=== PATIENT | female | born 1970 | race Caucasian/White ===

== ENCOUNTER 2018-03-17 06:50 | Emergency (ER) | payer BC ==
[2018-03-17] MEDS ORDERED: ASPIRIN 81 MG TABLET, CHEWABLE PO ONE (07:24)
[2018-03-17] MEDS ORDERED: MAG HYDROX/AL HYDROX/SIMETH SUSP 30 ML UDCUP PO ONE (07:25)
[2018-03-17] MEDS ORDERED: LIDOCAINE 2% VISCOUS SOLN 20 ML UDCUP PO ONE (07:25)
[2018-03-17 07:45] LABS: ABSOLUTE EOSINOPHILS # (AUTO) 0.2 10^3/uL (0.0-0.6); ABSOLUTE LYMPHOCYTES (AUTO) 2.8 10^3/uL (0.5-4.7); ABSOLUTE MONOCYTES (AUTO) 0.5 10^3/uL (0.1-1.4); ABSOLUTE NEUT (AUTO) 2.7 10^3/uL (1.7-8.2); BASOPHILS % (AUTO) 0.7 % (0-2); HEMATOCRIT 40.5 % (36.0-47.0); HEMOGLOBIN 13.7 g/dL (12.0-15.5); LYMPHOCYTES % (AUTO) 44.6 % (13-45); MEAN CORPUSCULAR HEMOGLOBIN 30.9 pg (27.0-33.4); MEAN CORPUSCULAR HGB CONC 33.9 g/dL (32.0-36.0); MEAN CORPUSCULAR VOLUME 91 fl (80-97); MONOCYTES % (AUTO) 7.3 % (3-13); PLATELET COUNT 201 10^3/uL (150-450); RED BLOOD COUNT 4.45 10^6/uL (3.72-5.28); RED CELL DISTRIBUTION WIDTH 14.7 % (11.5-14.0); SEGMENTED NEUTROPHILS % (AUTO) 43.4 % (42-78); TOTAL CELLS COUNTED % (AUTO) 100 %; WHITE BLOOD COUNT 6.2 10^3/uL (4.0-10.5)
--- NOTE | 2018-03-17 07:52 | RADIOLOGY REPORT (SQ) ---
EXAM DESCRIPTION: CHEST 2 VIEWS COMPLETED DATE/TIME: 03/17/2018 7:44 am REASON FOR STUDY: cp COMPARISON: Two-view chest 01/21/2016, 04/20/2009 EXAM PARAMETERS: NUMBER OF VIEWS: two views TECHNIQUE: Digital Frontal and Lateral radiographic views of the chest acquired. RADIATION DOSE: NA LIMITATIONS: none FINDINGS: LUNGS AND PLEURA: No opacities, masses or pneumothorax. No pleural effusion. MEDIASTINUM AND HILAR STRUCTURES: No masses or contour abnormalities. HEART AND VASCULAR STRUCTURES: Heart normal size. No evidence for failure. BONES: No acute findings. HARDWARE: Clips right upper quadrant post cholecystectomy OTHER: No other significant finding. IMPRESSION: NO ACUTE RADIOGRAPHIC FINDING IN THE CHEST. TECHNICAL DOCUMENTATION: JOB ID: [id number] [employer]- All Rights Reserved Reading location - IP/workstation name: [email or web address]
--- NOTE | 2018-03-17 07:55 | EKG REPORT ---
SEVERITY:- BORDERLINE ECG - SINUS RHYTHM BORDERLINE R WAVE PROGRESSION, ANTERIOR LEADS : Confirmed by: Eben Driscoll MD 17-Mar-2018 07:54:52
[2018-03-17 08:06] LABS: ALANINE AMINOTRANSFERASE 28 U/L (9-52); ALBUMIN 3.9 g/dL (3.5-5.0); ALKALINE PHOSPHATASE 89 U/L (38-126); ANION GAP 8 (5-19); ASPARTATE AMINO TRANSFERASE 25 U/L (14-36); BILIRUBIN,DIRECT 0.4 mg/dL (0.0-0.4); BILIRUBIN,TOTAL 0.6 mg/dL (0.2-1.3); BLOOD UREA NITROGEN 12 mg/dL (7-20); CALCIUM 9.4 mg/dL (8.4-10.2); CARBON DIOXIDE 27 mmol/L (22-30); CHLORIDE 109 mmol/L (98-107); CREATINE KINASE 69 U/L (30-135); GLUCOSE 89 mg/dL (75-110); LIPASE 152.9 U/L (23-300); POTASSIUM 4.1 mmol/L (3.6-5.0); SODIUM 144.4 mmol/L (137-145)
[2018-03-17 08:19] LABS: CREATINE KINASE MB 0.31 ng/mL (<4.55)
[2018-03-17 08:21] LABS: TROPONIN I < 0.012 ng/mL
[2018-03-17 08:24] LABS: APPEARANCE,URINE CLOUDY; BILIRUBIN,URINE NEGATIVE (NEGATIVE); GLUCOSE, URINE NEGATIVE (NEGATIVE); KETONES,URINE NEGATIVE (NEGATIVE); LEUKOCYTE ESTERASE,URINE SMALL (NEGATIVE); NITRITE,URINE NEGATIVE (NEGATIVE); PROTEIN,URINE NEGATIVE (NEGATIVE); URINE SPECIFIC GRAVITY 1.024; UROBILINOGEN,URINE NEGATIVE mg/dL (<2.0)
[2018-03-17 08:25] LABS: COLOR,URINE YELLOW
--- NOTE | 2018-03-17 08:55 | ER Document Report ---
ED General - General Chief Complaint: Chest Pain Stated Complaint: CHEST PAIN Time Seen by Provider: 03/17/18 07:09 Mode of Arrival: Ambulatory Information source: Patient Notes: Patient presents complaining of chest pain for the past 3 days. Patient states that pain goes through to her back. Patient points to the epigastric area as the location of her pain. Patient does report nausea. Patient denies any cough or cold symptoms. Patient denies any recent bed rest, travel or immobilization. Patient denies any history of DVT or PE in the past. TRAVEL OUTSIDE OF THE [place] IN LAST 30 DAYS: No - HPI Onset: Other Onset/Duration: Persistent Quality of pain: Other - Tightness Pain Level: 3 Associated symptoms: Chest pain, Nausea. 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 Family History: Reviewed & Not Pertinent - No history of DVT Patient has suicidal ideation: No Patient has homicidal ideation: No - Past Medical History Cardiac Medical History: Reports: Hx Hypertension - on meds Denies: Hx Coronary Artery Disease, Hx Heart Attack Pulmonary Medical History: Reports: Hx Asthma - inhalers Denies: Hx Bronchitis, Hx COPD, Hx Pneumonia Neurological Medical History: Denies: Hx Cerebrovascular Accident, Hx Seizures Renal/ Medical History: Denies: Hx Peritoneal Dialysis Musculoskeltal Medical History: Reports Hx Arthritis - rheumatoid Past Surgical History: Reports: Hx Section, Hx Cholecystectomy, Hx Tonsillectomy - Immunizations Hx Diphtheria, Pertussis, Tetanus Vaccination: No Review of Systems - Review of Systems Constitutional: No symptoms reported. denies: Fever, Recent illness EENT: No symptoms reported Cardiovascular: Chest pain Respiratory: No symptoms reported. denies: Cough, Short of breath Gastrointestinal: Abdominal pain, Nausea. denies: Diarrhea, Vomiting Genitourinary: No symptoms reported. denies: Dysuria, Flank pain Female Genitourinary: No symptoms reported Musculoskeletal: Back pain - Pain radiates from upper abdomen to her back Skin: No symptoms reported Hematologic/Lymphatic: No symptoms reported Neurological/Psychological: No symptoms reported Physical Exam - Vital signs Vitals: Temp 97.6 F 03/17/18 07:12 - General General appearance: Appears well, Alert In distress: None - HEENT Head: Normocephalic, Atraumatic Eyes: Normal Conjunctiva: Normal Nasal: Normal Mouth/Lips: Normal Mucous membranes: Normal Neck: Normal, Supple. No: Lymphadenopathy - Respiratory Respiratory status: No respiratory distress Chest status: Nontender Breath sounds: Normal Chest palpation: Normal - Cardiovascular Rhythm: Regular Heart sounds: S1 appreciated, S2 appreciated Murmur: No - Abdominal Inspection: Obese Distension: No distension Bowel sounds: Normal Tenderness: Tender - Epigastric tenderness Organomegaly: No organomegaly - Back Back: Normal, Nontender. No: CVA tenderness - Extremities General upper extremity: Normal inspection, Normal ROM General lower extremity: Normal inspection, Normal ROM. No: Edema - Neurological Neuro grossly intact: Yes Cognition: Normal Lexie Coma Scale Eye Opening: Spontaneous [place] Coma Scale Verbal: Oriented Lexie Coma Scale Motor: Obeys Commands [place] Coma Scale Total: 15 - Psychological Associated symptoms: Normal affect, Normal mood - Skin Skin Temperature: Warm Skin Moisture: Dry Skin Color: Normal Course - Re-evaluation Re-evalutation: 03/17/18 09:00 Patient reports that upper abdominal discomfort is now a 1/5 scale down from a 3 -1/2 after the GI cocktail. Vital signs stable. 03/17/18 10:02 Patient denies any chest pain or abdominal pain at this time. Vital signs continue stable. Consulted with Dr. Lim regarding patient presentation and diagnostic evaluation. Patient with a heart score of 2 for age and risk factor. Patient states that she has been having her pain symptoms for the past 3 days that have been constant. Patient reports chest pain although points to the epigastric area. Patient's symptoms are worrisome for gastritis given the location of her pain symptoms and improvement after use of GI cocktail. Patient will be encouraged to follow-up with a pbx operator on an outpatient basis for further workup. The patient has atypical chest pain as the patient's chest pain is not suggestive of pulmonary embolus, cardiac ischemia, aortic dissection, or other serious etiology. Given the extremely low risk of these diagnoses for the test in evaluation for these possibilities does not appear to be indicated at this time. Patient has been instructed to return if the symptoms worsen or change in any way. - Vital Signs Vital signs: Temp Pulse Resp BP Pulse Ox 98.3 F 14 138/90 H 99 03/17/18 10:13 03/17/18 10:00 03/17/18 10:00 03/17/18 10:00 - Laboratory Result Diagrams: 03/17/18 07:35 03/17/18 07:35 Laboratory results interpreted by me: 03/17/18 03/17/18 03/17/18 07:35 07:35 07:47 RDW 14.7 H Chloride 109 H Urine Blood MODERATE H Ur Leukocyte Esterase SMALL H 03/17/18 10:01 Labs- Entire Visit 03/17/18 03/17/18 03/17/18 07:35 07:35 07:35 WBC 6.2 RBC 4.45 Hgb 13.7 Hct 40.5 MCV 91 MCH 30.9 MCHC 33.9 RDW 14.7 H Plt Count 201 Seg Neutrophils % 43.4 Lymphocytes % 44.6 Monocytes % 7.3 Eosinophils % 4.0 Basophils % 0.7 Absolute Neutrophils 2.7 Absolute Lymphocytes 2.8 Absolute Monocytes 0.5 Absolute Eosinophils 0.2 Absolute Basophils 0.0 Sodium 144.4 Potassium 4.1 Chloride 109 H Carbon Dioxide 27 Anion Gap 8 BUN 12 Creatinine 0.94 Est GFR ( Amer) > 60 Est GFR (Non-Af Amer) > 60 Glucose 89 Calcium 9.4 Magnesium 2.0 Total Bilirubin 0.6 Direct Bilirubin 0.4 Neonat Total Bilirubin Not Reportable Neonat Direct Bilirubin Not Reportable Neonat Indirect Bili Not Reportable AST 25 ALT 28 Alkaline Phosphatase 89 Creatine Kinase 69 CK-MB (CK-2) 0.31 Troponin I < 0.012 Total Protein 7.0 Albumin 3.9 Lipase 152.9 Urine Color Urine Appearance Urine pH Ur Specific [place] Urine Protein Urine Glucose (UA) Urine Ketones Urine Blood Urine Nitrite Urine Bilirubin Urine Urobilinogen Ur Leukocyte Esterase Urine WBC (Auto) Urine RBC (Auto) U Hyaline Cast (Auto) Urine Bacteria (Auto) Squamous Epi Cells Auto Urine Mucus (Auto) Urine Ascorbic Acid Urine HCG, Qual 03/17/18 03/17/18 07:47 07:47 WBC RBC Hgb Hct MCV MCH MCHC RDW Plt Count Seg Neutrophils % Lymphocytes % Monocytes % Eosinophils % Basophils % Absolute Neutrophils Absolute Lymphocytes Absolute Monocytes Absolute Eosinophils Absolute Basophils Sodium Potassium Chloride Carbon Dioxide Anion Gap BUN Creatinine Est GFR ( Amer) Est GFR (Non-Af Amer) Glucose Calcium Magnesium Total Bilirubin Direct Bilirubin Neonat Total Bilirubin Neonat Direct Bilirubin Neonat Indirect Bili AST ALT Alkaline Phosphatase Creatine Kinase CK-MB (CK-2) Troponin I Total Protein Albumin Lipase Urine Color YELLOW Urine Appearance CLOUDY Urine pH 5.0 Ur Specific [place] 1.024 Urine Protein NEGATIVE Urine Glucose (UA) NEGATIVE Urine Ketones NEGATIVE Urine Blood MODERATE H Urine Nitrite NEGATIVE Urine Bilirubin NEGATIVE Urine Urobilinogen NEGATIVE Ur Leukocyte Esterase SMALL H Urine WBC (Auto) 19 Urine RBC (Auto) 5 U Hyaline Cast (Auto) 2 Urine Bacteria (Auto) 1+ Squamous Epi Cells Auto 27 Urine Mucus (Auto) MANY Urine Ascorbic Acid NEGATIVE Urine HCG, Qual NEGATIVE - Diagnostic Test Radiology reviewed: Image reviewed, Reports reviewed Discharge - Discharge Clinical Impression: Epigastric pain Chest pain Qualifiers: Chest pain type: unspecified Qualified Code(s): R07.9 - Chest pain, unspecified UTI (urinary tract infection) Qualifiers: Urinary tract infection type: site unspecified Hematuria presence: with hematuria Qualified Code(s): N39.0 - Urinary tract infection, site not specified Condition: Stable Disposition: HOME, SELF-CARE Instructions: Abdominal Pain ([facility]), Cephalexin ([facility]), Chest Pain of Unclear Cause ([facility]), Prilosec (Acid Pump Inhibitor) ([facility]), Urinary Tract Infection ([facility]) Additional Instructions: Return immediately for any new or worsening symptoms Followup with your primary care provider, call tomorrow to make a followup appointment Urine culture is pending, we will call if you need any different treatment. Follow-up with a pbx operator for further evaluation, call tomorrow for an appointment. Prescriptions: Cephalexin Monohydrate [Keflex 500 mg Capsule] 500 mg PO Q6H 5 Days capsule Omeprazole Magnesium [Prilosec Otc] 20 mg PO DAILY #15 tablet. Sucralfate [Carafate 1 gm Tablet] 1 gm PO ACHS #40 tablet Forms: Return to Work Referrals: BENY OSPINA MD [Primary Care Provider] - Follow up as needed SHY SANTANA MD [EMERITUS] - Follow up as needed ROB POWELL MD [ACTIVE STAFF] - Follow up as needed
[2018-03-17 10:09] VITALS: BP 138/90
== END 2018-03-17 10:13 | disposition home or self-care (01) ==
LOC: ER 06:50
DX: R07.89 Other chest pain (principal); N39.0 Urinary tract infection, site not specified; R31.9 Hematuria, unspecified; R10.13 Epigastric pain; R11.0 Nausea; I10 Essential (primary) hypertension; J45.909 Unspecified asthma, uncomplicated; Z90.49 Acquired absence of other specified parts of digestive tract; Z88.1 Allergy status to other antibiotic agents
CPT/HCPCS: 93005; 99285; 36415; 87086; 82553; 82550; 83690; 83735; 85025; 81025; 87088; 80053; 81001; 84484; 71046; 93010; J3490

== ENCOUNTER 2019-01-22 07:26 | Emergency (ER) | payer BC ==
--- NOTE | 2019-01-22 07:58 | RADIOLOGY REPORT (SQ) ---
EXAM DESCRIPTION: XR CHEST 2 VIEWS COMPLETED DATE/TME: 01/22/2019 00:00 CLINICAL HISTORY: 48 years, Female, Difficulty Breathing COMPARISON: 01/21/2016 NUMBER OF VIEWS: Two TECHNIQUE: Two views of the chest LIMITATIONS: None. FINDINGS: Lungs are clear. The heart is normal in size. There is no pneumothorax or pleural effusion. There is no acute fracture. IMPRESSION: No acute cardiopulmonary abnormality copyright 2010 [employer]- All Rights Reserved
[2019-01-22] MEDS ORDERED: IPRATROPIUM/ALBUTEROL 0.5-2.5 MG/3 ML AMPUL NEB ONE ×3 (08:17→13:20)
[2019-01-22] MEDS: ALBUTEROL SULFATE 0.083% NEB 2.5 MG/3 ML AMPUL NEB SCH ×2 (08:47→09:14)
[2019-01-22] MEDS ORDERED: PREDNISONE 20 MG TABLET PO ONE (09:13)
--- NOTE | 2019-01-22 09:16 | ER Document Report ---
ED Medical Screen (RME) - General Chief Complaint: Breathing Difficulty Stated Complaint: DIFFICULTY BREATHING Time Seen by Provider: 01/22/19 09:13 Primary Care Provider: HERNAN BURTON MD [Primary Care Provider] - Follow up as needed Mode of Arrival: Ambulatory Information source: Patient Notes: Patient presents complaining of asthma exacerbation. Patient states she has had nonproductive cough for about 2 weeks. Patient states that she went to an urgent care 10 days ago and was placed on steroids and Augmentin with an inhaler. Patient states that her symptoms have persisted and she feels as though they are worsening. Patient saw her primary doctor yesterday who just advised her to continue her asthma medications. Patient states today she feels like her symptoms are worse that she is having chest tightness with shortness of breath and wheezing. Patient denies any fever. Patient is still taking her antibiotics and is tapering her dose of steroids at this time, although has not had her dose of steroids today. I have greeted and performed a rapid initial assessment of this patient. A comprehensive ED assessment and evaluation of the patient, analysis of test results and completion of the medical decision making process will be conducted by additional ED providers. TRAVEL OUTSIDE OF THE [place] IN LAST 30 DAYS: No - Related Data Allergies/Adverse Reactions: erythromycin base [Erythromycin Base] Allergy (Severe, Verified 01/22/19 07:34) Chest pain Past Medical History - Social History Chew tobacco use (# tins/day): No Frequency of alcohol use: None Drug Abuse: None - Past Medical History Cardiac Medical History: Reports: Hx Hypertension - on meds Denies: Hx Coronary Artery Disease, Hx Heart Attack Pulmonary Medical History: Reports: Hx Asthma - inhalers Denies: Hx Bronchitis, Hx COPD, Hx Pneumonia Neurological Medical History: Denies: Hx Cerebrovascular Accident, Hx Seizures Renal/ Medical History: Denies: Hx Peritoneal Dialysis Musculoskeltal Medical History: Reports Hx Arthritis - rheumatoid Past Surgical History: Reports: Hx Section, Hx Cholecystectomy, Hx Tonsillectomy - Immunizations Hx Diphtheria, Pertussis, Tetanus Vaccination: No Physical Exam - Respiratory Respiratory status: No respiratory distress Breath sounds: Nonproductive cough, Wheezing Doctor's Discharge - Discharge Referrals: HERNAN BURTON MD [Primary Care Provider] - Follow up as needed
[2019-01-22] MEDS ORDERED: ALBUTEROL SULFATE 0.083% NEB 2.5 MG/3 ML AMPUL NEB ONE (09:18)
[2019-01-22] MEDS ORDERED: ALBUTEROL SULFATE 0.083% NEB 2.5 MG/3 ML AMPUL NEB SCH (09:29)
[2019-01-22 10:39] LABS: ABSOLUTE LYMPHOCYTES (AUTO) 5.4 10^3/uL (0.5-4.7); ABSOLUTE MONOCYTES (AUTO) 0.6 10^3/uL (0.1-1.4); ABSOLUTE NEUT (AUTO) 4.5 10^3/uL (1.7-8.2); BASOPHILS % (AUTO) 0.4 % (0-2); HEMATOCRIT 40.7 % (36.0-47.0); HEMOGLOBIN 13.5 g/dL (12.0-15.5); LYMPHOCYTES % (AUTO) 51.1 % (13-45); MEAN CORPUSCULAR HEMOGLOBIN 31.2 pg (27.0-33.4); MEAN CORPUSCULAR HGB CONC 33.3 g/dL (32.0-36.0); MEAN CORPUSCULAR VOLUME 94 fl (80-97); MONOCYTES % (AUTO) 6.1 % (3-13); PLATELET COUNT 219 10^3/uL (150-450); RED BLOOD COUNT 4.33 10^6/uL (3.72-5.28); RED CELL DISTRIBUTION WIDTH 14.2 % (11.5-14.0); SEGMENTED NEUTROPHILS % (AUTO) 42.4 % (42-78); TOTAL CELLS COUNTED % (AUTO) 100 %; WHITE BLOOD COUNT 10.6 10^3/uL (4.0-10.5)
[2019-01-22 10:58] LABS: ALANINE AMINOTRANSFERASE 38 U/L (9-52); ALKALINE PHOSPHATASE 77 U/L (38-126); ANION GAP 9 (5-19); ASPARTATE AMINO TRANSFERASE 18 U/L (14-36); BILIRUBIN,DIRECT 0.2 mg/dL (0.0-0.4); BILIRUBIN,TOTAL 0.4 mg/dL (0.2-1.3); BLOOD UREA NITROGEN 18 mg/dL (7-20); CALCIUM 9.4 mg/dL (8.4-10.2); CARBON DIOXIDE 29 mmol/L (22-30); CHLORIDE 103 mmol/L (98-107); GLUCOSE 100 mg/dL (75-110); POTASSIUM 3.4 mmol/L (3.6-5.0); SODIUM 141.4 mmol/L (137-145); TOTAL PROTEIN 6.8 g/dL (6.3-8.2)
--- NOTE | 2019-01-22 13:32 | ER Document Report ---
ED Respiratory Problem - General Chief Complaint: Breathing Difficulty Stated Complaint: DIFFICULTY BREATHING Time Seen by Provider: 01/22/19 09:13 Primary Care Provider: ROSY WILLIAM DO [Primary Care Provider] - Follow up tomorrow Mode of Arrival: Ambulatory Information source: Patient Notes: Patient presents complaining of cough wheezing and shortness of breath. Patient states she had symptoms for the past 2 weeks. Patient went to an urgent care 10 days ago and was placed on antibiotics steroids as well as an inhaler. Patient states she saw her primary doctor about her symptoms yesterday and was told just to continue her medicines that she is continue to take. Patient feels as though her shortness of breath and wheezing symptoms have worsened. TRAVEL OUTSIDE OF THE [place] IN LAST 30 DAYS: No - HPI Patient complains to provider of: Asthma, Cough, Short of breath Onset: Other - 2 weeks Duration: Worse/persistent Quality of pain: Other - Tightness Pain Level: 1 Context: Hx asthma. denies: Recent long distance trvl, Recent immobilization, Recent surgery, Smoker Cough: Nonproductive EMS treatments: Bronchodilators Associated symptoms: Chest pain/discomfort, Cough, Short of breath, Wheezing. 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 Family History: Reviewed & Not Pertinent - No history of DVT Patient has suicidal ideation: No Patient has homicidal ideation: No - Past Medical History Cardiac Medical History: Reports: Hx Hypertension - on meds Denies: Hx Coronary Artery Disease, Hx Heart Attack Pulmonary Medical History: Reports: Hx Asthma - inhalers Denies: Hx Bronchitis, Hx COPD, Hx Pneumonia Neurological Medical History: Denies: Hx Cerebrovascular Accident, Hx Seizures Renal/ Medical History: Denies: Hx Peritoneal Dialysis Musculoskeletal Medical History: Reports Hx Arthritis - rheumatoid Past Surgical History: Reports: Hx Section, Hx Cholecystectomy, Hx Tonsillectomy - Immunizations Hx Diphtheria, Pertussis, Tetanus Vaccination: No Review of Systems - Review of Systems Constitutional: No symptoms reported. denies: Fever EENT: No symptoms reported Cardiovascular: Chest pain - Chest tightness Respiratory: Cough, Short of breath, Wheezing Gastrointestinal: No symptoms reported. denies: Abdominal pain, Nausea, Vomiting Genitourinary: No symptoms reported Female Genitourinary: No symptoms reported Musculoskeletal: No symptoms reported. denies: Back pain Skin: No symptoms reported Hematologic/Lymphatic: No symptoms reported Neurological/Psychological: No symptoms reported Physical Exam - Vital signs Vitals: Temp Pulse Resp BP Pulse Ox 97.6 F 71 20 140/80 H 100 01/22/19 08:01 01/22/19 08:01 01/22/19 08:01 01/22/19 08:01 01/22/19 08:01 - General General appearance: Appears well, Alert In distress: None - HEENT Head: Normocephalic Eyes: Normal Conjunctiva: Normal Nasal: Normal Neck: Normal - Respiratory Respiratory status: No respiratory distress Chest status: Nontender Breath sounds: Nonproductive cough, Wheezing - RLL Chest palpation: Normal - Cardiovascular Rhythm: Regular. No: Tachycardia Heart sounds: S1 appreciated, S2 appreciated Murmur: No - Abdominal Inspection: Normal Tenderness: Nontender - Back Back: Normal - Extremities General upper extremity: Normal inspection, Normal ROM General lower extremity: Normal inspection, Normal ROM. No: Edema - Neurological Neuro grossly intact: Yes Cognition: Normal Lexie Coma Scale Eye Opening: Spontaneous [place] Coma Scale Verbal: Oriented [place] Coma Scale Motor: Obeys Commands Lexie Coma Scale Total: 15 - Psychological Associated symptoms: Normal affect, Normal mood - Skin Skin Temperature: Warm Skin Moisture: Dry Skin Color: Normal Course - Re-evaluation Re-evalutation: 01/22/19 13:23 Patient states that she is wanting to go home and does not want to stay. Patient reports that she is is breathing much better at this time. 01/22/19 14:35 Patient with only faint wheezing noted to right lower lobe. No tachypnea or tachycardia. Patient without any chest pain symptoms at this time. Chest x-ray reviewed, no concern for pneumonia. Patient's delta troponin without any abnormality. Patient not tachycardic nor hypoxic. Patient PERC negative. Patient with mild decrease in her potassium level I suspect likely result of the nebulizer treatments that she has been given in triage prior to her blood draw. Patient with a heart score of 2. Reports increase in symptoms after she started to taper her steroids. Will give patient short course of additional steroid medication as well as medicine for her nebulizer machine which she had run out o f. - Vital Signs Vital signs: Temp Pulse Resp BP Pulse Ox 98.4 F 67 16 149/76 H 96 01/22/19 14:51 01/22/19 14:51 01/22/19 14:51 01/22/19 14:51 01/22/19 14:51 - Laboratory Result Diagrams: 01/22/19 10:10 01/22/19 10:10 Laboratory results interpreted by me: 01/22/19 01/22/19 10:10 10:10 WBC 10.6 H RDW 14.2 H Lymphocytes % 51.1 H Absolute Lymphocytes 5.4 H Potassium 3.4 L Est GFR (Non-Af Amer) 55 L 01/22/19 14:35 Labs- Entire Visit 01/22/19 01/22/19 01/22/19 10:10 10:10 10:10 WBC 10.6 H RBC 4.33 Hgb 13.5 Hct 40.7 MCV 94 MCH 31.2 MCHC 33.3 RDW 14.2 H Plt Count 219 Seg Neutrophils % 42.4 Lymphocytes % 51.1 H Monocytes % 6.1 Eosinophils % 0.0 Basophils % 0.4 Absolute Neutrophils 4.5 Absolute Lymphocytes 5.4 H Absolute Monocytes 0.6 Absolute Eosinophils 0.0 Absolute Basophils 0.0 Sodium 141.4 Potassium 3.4 L Chloride 103 Carbon Dioxide 29 Anion Gap 9 BUN 18 Creatinine 1.07 Est GFR ( Amer) > 60 Est GFR (Non-Af Amer) 55 L Glucose 100 Calcium 9.4 Total Bilirubin 0.4 Direct Bilirubin 0.2 Neonat Total Bilirubin Not Reportable Neonat Direct Bilirubin Not Reportable Neonat Indirect Bili Not Reportable AST 18 ALT 38 Alkaline Phosphatase 77 Troponin I < 0.012 Total Protein 6.8 Albumin 4.0 01/22/19 13:30 WBC RBC Hgb Hct MCV MCH MCHC RDW Plt Count Seg Neutrophils % Lymphocytes % Monocytes % Eosinophils % Basophils % Absolute Neutrophils Absolute Lymphocytes Absolute Monocytes Absolute Eosinophils Absolute Basophils Sodium Potassium Chloride Carbon Dioxide Anion Gap BUN Creatinine Est GFR ( Amer) Est GFR (Non-Af Amer) Glucose Calcium Total Bilirubin Direct Bilirubin Neonat Total Bilirubin Neonat Direct Bilirubin Neonat Indirect Bili AST ALT Alkaline Phosphatase Troponin I < 0.012 Total Protein Albumin - Diagnostic Test Radiology reviewed: Reports reviewed - EKG Interpretation by Me EKG shows normal: Sinus rhythm Rate: Normal When compared to previous EKG there are: No significant change Discharge - Discharge Clinical Impression: Asthma exacerbation Qualifiers: Asthma severity: unspecified severity Asthma persistence: unspecified Qualified Code(s): J45.901 - Unspecified asthma with (acute) exacerbation Condition: Stable Disposition: HOME, SELF-CARE Additional Instructions: Return immediately for any new or worsening symptoms Followup with your primary care provider, call tomorrow to make a followup appointment ASTHMA: You have been diagnosed as having asthma. This is a condition where there is episodic tightness in the bronchial tubes. Allergies, infections, and pollut ed or cold air may be contributing factors. Emergency treatment of a severe asthma attack may include adrenaline shots, or bronchodilator aerosol. You may feel lightheaded, have a decreased exercise tolerance and a rapid pulse for an hour or two. Rest and get plenty of fluids. Home treatment of asthma requires bronchodilator drugs. These can be administered by injection, inhalation, or by mouth. Antibiotics and corticosteroids may be required for some patients. You should avoid chemical fumes, dusts, pollens, and exercising in very cold or dry air. If you smoke, stop!! If you develop a fever, increased wheezing, chest pain, or severe shortness of breath, you should contact the doctor immediately. STEROID MEDICATION: You have been given an injection of or oral medicine of the cortisone/steroid class. This medication is used to control inflammation or allergy. Beny t is usually only given for a short period of time, until the acute process subsides. There are usually no side effects from short-term use of cortisone-like medications. Some persons feel an increased sense of well-being and are not sleepy at bedtime. Long-term use of cortisone medications is best avoided, unless required for a severe condition. If your condition does not remit, or re lapses after the course of corticosteroid medication, you should consult your physician. INHALED BRONCHODILATORS: You have received treatment(s) of and/or prescription for an inhaled bronchodilator -- a medication which stimulates the airways in the lung to dilate. This improves the flow of air in asthma, bronchitis, and emphysema. These medicines have some similarity to adrenaline, and can cause similar side effects: shakiness, racing heart, and a sense of nervousness. These side effects decrease with time. Contact your doctor if these side effects are severe. Do not over-use the medicine. Too-frequent use of the inhaler may make it ineffective. Call your doctor if the inhaler is not controlling your symptoms at the prescribed doses. USE OF ACETAMINOPHEN (Tylenol): Acetaminophen may be taken for pain relief or fever control. It's much safer than aspirin, offering a wider range of "safe" dosages. It is safe during . Some brand names are Tylenol, Panadol, Datril, Anacin 3, Tempra, and Liquiprin. Acetaminophen can be repeated every four hours. The following are maximum recommended dosages: WEIGHT Dose Drops Elixir Chewable(80mg) (LBS.) drprs=droppers tsp=teaspoon >89 pounds or adults 650 mg to 900 mg Acetaminophen can be repeated every four hours. Maximum dose not to exceed 4000 mg a day. These maximum recommended dosages are slightly higher than the dosages written on the product container, but these dosages are very safe and below the toxic dosage for acetaminophen. FOLLOW-UP CARE: If you have been referred to a physician for follow-up care, call the physicians office for an appointment as you were instructed or within the next two days. If you experience worsening or a significant change in your symptoms, notify the physician immediately or return to the Emergency Department at any time for re-evaluation. Prescriptions: Albuterol Sulfate [Ventolin 0.083% Neb 2.5 mg/3 ml Ampul] 1 vial NEB Q4 PRN #30 vial PRN Reason: Prednisone [Deltasone 10 mg Tablet] 10 mg PO ASDIR PRN #21 tablet PRN Reason: Forms: Return to Work Referrals: ROSY WILLIAM, [Primary Care Provider] - Follow up tomorrow
[2019-01-22 14:52] VITALS: BP 149/76
--- NOTE | 2019-01-22 19:40 | EKG REPORT ---
SEVERITY:- NORMAL ECG - SINUS RHYTHM : Confirmed by: Lupe Whitney MD 22-Jan-2019 19:39:53
== END 2019-01-22 14:53 | disposition home or self-care (01) ==
LOC: ER 07:26
DX: J45.901 Unspecified asthma with (acute) exacerbation (principal); R05 Cough; R06.02 Shortness of breath; R07.89 Other chest pain; I10 Essential (primary) hypertension; Z88.1 Allergy status to other antibiotic agents
CPT/HCPCS: 93005; 94640 ×2; 99285; 36415; 85025; 80053; 84484; 71046; 93010; J7512; J7620

== ENCOUNTER 2019-07-26 00:34 | Emergency (ER) | payer BC ==
[2019-07-26] MEDS ORDERED: MAG HYDROX/AL HYDROX/SIMETH SUSP 30 ML UDCUP PO ONE (01:24)
[2019-07-26] MEDS ORDERED: LIDOCAINE 2% VISCOUS SOLN 20 ML UDCUP PO ONE (01:24)
[2019-07-26] MEDS ORDERED: METOCLOPRAMIDE HCL ORAL SOLN 10 MG/10 ML UDCUP PO ONE (01:24)
[2019-07-26 01:45] LABS: ABSOLUTE MONOCYTES (AUTO) 0.4 10^3/uL (0.1-1.4); ABSOLUTE NEUT (AUTO) 5.9 10^3/uL (1.7-8.2); BASOPHILS % (AUTO) 0.2 % (0-2); HEMATOCRIT 36.3 % (36.0-47.0); HEMOGLOBIN 12.1 g/dL (12.0-15.5); LYMPHOCYTES % (AUTO) 23.9 % (13-45); MEAN CORPUSCULAR HEMOGLOBIN 30.4 pg (27.0-33.4); MEAN CORPUSCULAR HGB CONC 33.4 g/dL (32.0-36.0); MEAN CORPUSCULAR VOLUME 91 fl (80-97); MONOCYTES % (AUTO) 5.4 % (3-13); PLATELET COUNT 194 10^3/uL (150-450); RED BLOOD COUNT 3.99 10^6/uL (3.72-5.28); RED CELL DISTRIBUTION WIDTH 14.9 % (11.5-14.0); SEGMENTED NEUTROPHILS % (AUTO) 70.5 % (42-78); TOTAL CELLS COUNTED % (AUTO) 100 %; WHITE BLOOD COUNT 8.4 10^3/uL (4.0-10.5)
[2019-07-26 02:03] LABS: ALBUMIN 3.4 g/dL (3.5-5.0); ALKALINE PHOSPHATASE 74 U/L (38-126); ANION GAP 5 (5-19); ASPARTATE AMINO TRANSFERASE 26 U/L (14-36); BILIRUBIN,DIRECT 0.1 mg/dL (0.0-0.4); BILIRUBIN,TOTAL 0.4 mg/dL (0.2-1.3); BLOOD UREA NITROGEN 15 mg/dL (7-20); CALCIUM 8.5 mg/dL (8.4-10.2); CARBON DIOXIDE 28 mmol/L (22-30); CHLORIDE 107 mmol/L (98-107); GLUCOSE 103 mg/dL (75-110); TOTAL PROTEIN 6.3 g/dL (6.3-8.2)
--- NOTE | 2019-07-26 02:13 | RADIOLOGY REPORT (SQ) ---
Chest 2 view on 07/26/2019 at 1:39 AM CLINICAL INDICATION: Chest pain COMPARISON: 01/22/2019 FINDINGS: The lungs are clear. Cardiac, hilar and mediastinal contours are within normal limits. Pulmonary vascularity is within normal limits. No bony abnormality is noted. IMPRESSION: No active disease.
--- NOTE | 2019-07-26 03:50 | ER Document Report ---
ED General - General Chief Complaint: Chest Pain Stated Complaint: CHEST PAIN Time Seen by Provider: 07/26/19 01:12 Primary Care Provider: BENY OSPINA MD [Primary Care Provider] - Follow up as needed Notes: Ms. Gutierrez is a 49 yo F w/ PMH hypertension, anxiety, GERD, asthma presenting to the ED for midsternal pain which she describes as heaviness and intermittently sharp. Patient denies any known history of CAD. She states she had a stress approximately 2 to 3 years ago which was unremarkable. She denies any dyspnea upon exertion, cough or shortness of breath. She denies nausea, vomiting or diarrhea. TRAVEL OUTSIDE OF THE [place] IN LAST 30 DAYS: No - Related Data Allergies/Adverse Reactions: erythromycin base [Erythromycin Base] Allergy (Severe, Verified 01/22/19 07:34) Chest pain Home Medications: potassium, metoprolol, lasix, plaquinal, xanax, depressio n med Past Medical History - Social History Smoking Status: Former Smoker Frequency of alcohol use: Rare Family History: Reviewed & Not Pertinent - No history of DVT Patient has suicidal ideation: No Patient has homicidal ideation: No - Past Medical History Cardiac Medical History: Reports: Hx Hypertension - on meds Denies: Hx Coronary Artery Disease, Hx Heart Attack Pulmonary Medical History: Reports: Hx Asthma - inhalers Denies: Hx Bronchitis, Hx COPD, Hx Pneumonia Neurological Medical History: Denies: Hx Cerebrovascular Accident, Hx Seizures Renal/ Medical History: Denies: Hx Peritoneal Dialysis Musculoskeletal Medical History: Reports Hx Arthritis - rheumatoid Past Surgical History: Reports: Hx Section, Hx Cholecystectomy, Hx Tonsillectomy - Immunizations Hx Diphtheria, Pertussis, Tetanus Vaccination: No Review of Systems - Review of Systems Constitutional: See HPI EENT: No symptoms reported Cardiovascular: See HPI Respiratory: See HPI Gastrointestinal: See HPI Genitourinary: No symptoms reported Female Genitourinary: No symptoms reported Musculoskeletal: No symptoms reported Skin: No symptoms reported Hematologic/Lymphatic: No symptoms reported Neurological/Psychological: No symptoms reported Physical Exam - Vital signs Vitals: Temp Pulse Resp BP Pulse Ox 97.8 F 60 16 142/87 H 100 07/26/19 00:45 07/26/19 00:45 07/26/19 00:45 07/26/19 00:45 07/26/19 00:45 Interpretation: Normal - General General appearance: Appears well, Alert - HEENT Head: Normocephalic, Atraumatic Eyes: Normal Pupils: PERRL - Respiratory Respiratory status: No respiratory distress Chest status: Nontender Breath sounds: Normal Chest palpation: Normal - Cardiovascular Rhythm: Regular Heart sounds: Normal auscultation Murmur: No - Abdominal Inspection: Normal Distension: No distension Bowel sounds: Normal Tenderness: Nontender Organomegaly: No organomegaly - Back Back: Normal, Nontender - Extremities General upper extremity: Normal inspection, Nontender, Normal color, Normal ROM, Normal temperature General lower extremity: Normal inspection, Nontender, Normal color, Normal ROM, Normal temperature, Normal weight bearing. No: Thea's sign - Neurological Neuro grossly intact: Yes Cognition: Normal Orientation: AAOx4 [place] Coma Scale Eye Opening: Spontaneous [place] Coma Scale Verbal: Oriented Lexie Coma Scale Motor: Obeys Commands [place] Coma Scale Total: 15 Speech: Normal Motor strength normal: LUE, RUE, LLE, RLE Sensory: Normal - Psychological Associated symptoms: Normal affect, Normal mood - Skin Skin Temperature: Warm Skin Moisture: Dry Skin Color: Normal Course - Re-evaluation Re-evalutation: She is generally well-appearing and nontoxic. Initial vitals within normal limits. Differential diagnosis includes GERD, CAD, pneumonia (less likely) 07/26/19 01:48 EKG nonischemic. Patient does have several risk factors for possible CAD including hypertension, hyperlipidemia. She also has a remote history of being a heavy smoker. Had a previous stress test 10 years ago when she had her gallbladder out and that was normal at that point in time. 07/26/19 03:48 Patient feels significantly improved after GI cocktail. Requesting to be discharged. I explained that she has a few risk factors for ACS and recommended she stay for repeat troponin. Patient amenable to this. Will repeat now and reassess. If negative, patient can be discharged with likely diagnosis of GERD. Patient felt significantly improved. Repeat troponin negative. Patient given return precautions instructed to follow-up with a primary care doctor as an outpatient. - Vital Signs Vital signs: Temp Pulse Resp BP Pulse Ox 97.8 F 60 27 H 134/79 H 97 07/26/19 00:45 07/26/19 00:45 07/26/19 05:57 07/26/19 05:57 07/26/19 05:56 - Laboratory Result Diagrams: 07/26/19 01:30 07/26/19 01:30 Laboratory results interpreted by me: 07/26/19 07/26/19 01:30 01:30 RDW 14.9 H Albumin 3.4 L - EKG Interpretation by Me EKG shows normal: Sinus rhythm, Vandiver, QRS Complexes, ST-T Waves Rate: Normal Rhythm: NSR Discharge - Discharge Clinical Impression: GERD (gastroesophageal reflux disease) Condition: Good Disposition: HOME, SELF-CARE Instructions: Antacid Therapy (OM), Prilosec (Acid Pump Inhibitor) (OM), Reflux Disease (GERD) ([facility]) Additional Instructions: I would recommend that you start taking codeine, ranitidine or omeprazole on a regular basis to prevent recurrence of the symptoms. I would also avoid foods high in acidity such as orange juice, tomato tomato sauce and other citrus products such as kelly. Return to the ED if he develop worsening chest pain, abdominal pain, unable to keep down food or drink, or any other concerning symptoms. Prescriptions: Omeprazole 40 mg PO DAILY 30 Days capsule.dr Referrals: BENY OSPINA MD [Primary Care Provider] - Follow up as needed
[2019-07-26 06:01] VITALS: BP 134/79
--- NOTE | 2019-07-26 23:17 | EKG REPORT ---
SEVERITY:- NORMAL ECG - SINUS RHYTHM : Confirmed by: Santiago Huitron 26-Jul-2019 23:16:49
== END 2019-07-26 06:01 | disposition home or self-care (01) ==
LOC: ER 00:34
DX: K21.9 Gastro-esophageal reflux disease without esophagitis (principal); R07.9 Chest pain, unspecified; E78.5 Hyperlipidemia, unspecified; I10 Essential (primary) hypertension; F32.9 Major depressive disorder, single episode, unspecified; J45.909 Unspecified asthma, uncomplicated; M06.9 Rheumatoid arthritis, unspecified; Z79.899 Other long term (current) drug therapy; Z87.891 Personal history of nicotine dependence
CPT/HCPCS: 93005; 36415; 85025; 80053; 84484; 71046; 93010; J3490; 99285

== ENCOUNTER 2019-08-17 21:48 | Emergency (ER) | payer BC ==
--- NOTE | 2019-08-17 22:26 | ER Document Report ---
ED Medical Screen (RME) - General Stated Complaint: LEFT LOWER ABDOMINAL PAIN Time Seen by Provider: 08/17/19 22:19 Primary Care Provider: BENY OSPINA MD [Primary Care Provider] - Follow up as needed Notes: Patient is a 49-year-old female who presents emergency department with left lower quadrant abdominal pain. Patient saw her cloth bin packer this morning and had her IUD taken out. She was having pain for the past 5 days, and the cloth bin packer thought that maybe it was her IUD causing her problems, but the patient still has pain. She has been taking ibuprofen for pain, but states that it is not helping anymore. Denies any lauro blood. Exam: Tender left lower quadrant. I have greeted and performed a rapid initial assessment of this patient. A comprehensive ED assessment and evaluation of the patient, analysis of test r esults and completion of medical decision making process will be conducted by an additional ED providers. TRAVEL OUTSIDE OF THE [place] IN LAST 30 DAYS: No - Related Data Allergies/Adverse Reactions: erythromycin base [Erythromycin Base] Allergy (Severe, Verified 01/22/19 07:34) Chest pain Past Medical History - Past Medical History Cardiac Medical History: Reports: Hx Hypertension - on meds Denies: Hx Coronary Artery Disease, Hx Heart Attack Pulmonary Medical History: Reports: Hx Asthma - inhalers Denies: Hx Bronchitis, Hx COPD, Hx Pneumonia Neurological Medical History: Denies: Hx Cerebrovascular Accident, Hx Seizures Renal/ Medical History: Denies: Hx Peritoneal Dialysis Musculoskeltal Medical History: Reports Hx Arthritis - rheumatoid Past Surgical History: Reports: Hx Section, Hx Cholecystectomy, Hx Tonsillectomy - Immunizations Hx Diphtheria, Pertussis, Tetanus Vaccination: No Physical Exam - Vital signs Vitals: Temp Pulse Resp BP Pulse Ox 98.2 F 69 20 153/91 H 99 08/17/19 22:04 08/17/19 22:04 08/17/19 22:04 08/17/19 22:04 08/17/19 22:04 Course - Vital Signs Vital signs: Temp Pulse Resp BP Pulse Ox 98.2 F 69 20 153/91 H 99 08/17/19 22:04 08/17/19 22:04 08/17/19 22:04 08/17/19 22:04 08/17/19 22:04 Doctor's Discharge - Discharge Referrals: BENY OSPINA MD [Primary Care Provider] - Follow up as needed
[2019-08-17 23:00] LABS: ABSOLUTE BASOPHILS # (AUTO) 0.1 10^3/uL (0.0-0.2); ABSOLUTE EOSINOPHILS # (AUTO) 0.5 10^3/uL (0.0-0.6); ABSOLUTE LYMPHOCYTES (AUTO) 3.9 10^3/uL (0.5-4.7); ABSOLUTE MONOCYTES (AUTO) 1.1 10^3/uL (0.1-1.4); ABSOLUTE NEUT (AUTO) 6.9 10^3/uL (1.7-8.2); BASOPHILS % (AUTO) 0.7 % (0-2); EOSINOPHILS % (AUTO) 4.4 % (0-6); HEMATOCRIT 35.4 % (36.0-47.0); HEMOGLOBIN 11.8 g/dL (12.0-15.5); MEAN CORPUSCULAR HEMOGLOBIN 30.2 pg (27.0-33.4); MEAN CORPUSCULAR HGB CONC 33.3 g/dL (32.0-36.0); MEAN CORPUSCULAR VOLUME 91 fl (80-97); MONOCYTES % (AUTO) 8.6 % (3-13); PLATELET COUNT 288 10^3/uL (150-450); RED CELL DISTRIBUTION WIDTH 14.3 % (11.5-14.0); SEGMENTED NEUTROPHILS % (AUTO) 55.3 % (42-78); TOTAL CELLS COUNTED % (AUTO) 100 %; WHITE BLOOD COUNT 12.5 10^3/uL (4.0-10.5)
[2019-08-17 23:03] LABS: APPEARANCE,URINE SLIGHTLY-CLOUDY; BILIRUBIN,URINE NEGATIVE (NEGATIVE); COLOR,URINE YELLOW; GLUCOSE, URINE NEGATIVE (NEGATIVE); KETONES,URINE NEGATIVE (NEGATIVE); LEUKOCYTE ESTERASE,URINE LARGE (NEGATIVE); NITRITE,URINE NEGATIVE (NEGATIVE); PROTEIN,URINE 30 mg/dL (NEGATIVE); URINE SPECIFIC GRAVITY 1.028; UROBILINOGEN,URINE NEGATIVE mg/dL (<2.0)
[2019-08-17 23:26] LABS: ALBUMIN 3.5 g/dL (3.5-5.0); ALKALINE PHOSPHATASE 90 U/L (38-126); ANION GAP 8 (5-19); ASPARTATE AMINO TRANSFERASE 16 U/L (14-36); BILIRUBIN,DIRECT 0.2 mg/dL (0.0-0.4); BILIRUBIN,TOTAL 0.2 mg/dL (0.2-1.3); BLOOD UREA NITROGEN 19 mg/dL (7-20); CALCIUM 9.2 mg/dL (8.4-10.2); CARBON DIOXIDE 26 mmol/L (22-30); CHLORIDE 107 mmol/L (98-107); GLUCOSE 83 mg/dL (75-110); POTASSIUM 4.3 mmol/L (3.6-5.0); TOTAL PROTEIN 6.6 g/dL (6.3-8.2)
[2019-08-18] MEDS ORDERED: CEPHALEXIN 500 MG CAPSULE PO ONE (00:02)
--- NOTE | 2019-08-18 00:06 | RADIOLOGY REPORT (SQ) ---
EXAM DESCRIPTION: US PELVIS TRANSVAGINAL COMPLETED DATE/TME: 08/17/2019 22:26 CLINICAL HISTORY: 49 years, Female, left pelvic pain COMPARISON: None. TECHNIQUE: Axial 2-D grayscale images of the pelvis were acquired. Doppler was utilized. LIMITATIONS: None. FINDINGS: Uterus measures 6.7 x 3.1 x 2.8 cm in size. Cervix is closed, measuring 3.0 cm in length. A small amount of hypoechoic material is suspected within the endocervical canal, nonspecific. Endometrial stripe thickness measures 1 to 2 mm. Right ovary measures 2.1 x 1.7 x 1.5 cm in size. It demonstrates normal Doppler flow. In addition, it appears contain an anechoic lesion measuring 1.4 x 1.2 x 1.3 cm in size, corresponding to a simple ovarian cyst for which no further follow-up is necessary. Left ovary measures 2.0 x 1.6 x 1.7 cm in size. It demonstrates normal Doppler flow. In addition, the left ovary contains an anechoic lesion measuring 2.0 x 1.5 x 1.0 cm in size, consistent with a simple ovarian cyst, considered benign for which no further follow-up is necessary. No significant free fluid is identified within the pelvis. IMPRESSION: No acute sonographic abnormality. copyright 2010 [employer]- All Rights Reserved
--- NOTE | 2019-08-18 00:07 | ER Document Report ---
ED General - General Chief Complaint: Abdominal Pain Stated Complaint: LEFT LOWER ABDOMINAL PAIN Time Seen by Provider: 08/17/19 22:19 Primary Care Provider: BENY OSPINA MD [Primary Care Provider] - Follow up as needed TRAVEL OUTSIDE OF THE [place] IN LAST 30 DAYS: No - HPI Notes: Patient is a 49-year-old female who presents emergency department for evaluation of left-sided abdominal pain. Is lower. It started about 5 days ago. She states the first was relieved with ibuprofen, now is not helping. She states she has had some nausea, believes this is secondary to the intense pain she has been having. She describes a sharp and cramping pain. Is worsened by urin ation, nothing seems to make it better. Normal bowel movements earlier today. No fevers or chills. She denies any vaginal discharge. She saw her REWINDER OPERATOR, who removed her IUD, thinking that may be the source of her symptoms. She states that was done earlier today and was no help. - Related Data Allergies/Adverse Reactions: erythromycin base [Erythromycin Base] Allergy (Severe, Verified 01/22/19 07:34) Chest pain Home Medications: Metoprolol. Lasix. Plaquinil. Potassium Past Medical History - General Information source: Patient - Social History Smoking Status: Never Smoker Frequency of alcohol use: None Family History: Reviewed & Not Pertinent - No history of DVT Patient has suicidal ideation: No Patient has homicidal ideation: No - Past Medical History Cardiac Medical History: Reports: Hx Hypertension - on meds Denies: Hx Coronary Artery Disease, Hx Heart Attack Pulmonary Medical History: Reports: Hx Asthma - inhalers Denies: Hx Bronchitis, Hx COPD, Hx Pneumonia Neurological Medical History: Denies: Hx Cerebrovascular Accident, Hx Seizures Renal/ Medical History: Denies: Hx Peritoneal Dialysis Musculoskeletal Medical History: Reports Hx Arthritis - rheumatoid Past Surgical History: Reports: Hx Section, Hx Cholecystectomy, Hx Tonsillectomy - Immunizations Hx Diphtheria, Pertussis, Tetanus Vaccination: No Review of Systems - Review of Systems Constitutional: No symptoms reported EENT: No symptoms reported Cardiovascular: No symptoms reported Respiratory: No symptoms reported Gastrointestinal: See HPI Genitourinary: See HPI Female Genitourinary: No symptoms reported Musculoskeletal: No symptoms reported Skin: No symptoms reported Neurological/Psychological: No symptoms reported Physical Exam - Vital signs Vitals: Temp Pulse Resp BP Pulse Ox 98.2 F 69 20 153/91 H 99 08/17/19 22:04 08/17/19 22:04 08/17/19 22:04 08/17/19 22:04 08/17/19 22:04 - Notes Notes: Vital signs reviewed, please refer to chart. Head is normocephalic, atraumatic. Pupils equal round, reactive to light. Neck is supple without meningismus. Heart is regular rate and rhythm. Lungs are clear to auscultation bilaterally. Abdomen is soft, mildly tender in the left pelvis without rebound or guarding, normoactive bowel sounds throughout. Extremities without cyanosis, clubbing. Posterior calves are nontender. Peripheral pulses are equal. Skin is warm and dry. Patient is awake, alert, neurological exam is nonfocal. Course - Re-evaluation Re-evalutation: 08/18/19 00:06 Patient presents emergency department for evaluation. Laboratory investigations revealed a mild leukocytosis. Her urine shows large leukocyte esterase. Her pain is worsened by urination. I suspect UTI. She is given her first dose of Keflex here. Awaiting transvaginal ultrasound. If this is found to be unremarkable, patient will be given a prescription for Keflex and close follow- up. She voiced understanding to the plan. She understands that if her pain worsens, however, she needs to be reevaluated. - Vital Signs Vital signs: Temp Pulse Resp BP Pulse Ox 98.2 F 69 20 153/91 H 99 08/17/19 22:04 08/17/19 22:04 08/17/19 22:04 08/17/19 22:04 08/17/19 22:04 - Laboratory Result Diagrams: 08/17/19 22:44 08/17/19 22:44 Laboratory results interpreted by me: 08/17/19 08/17/19 08/17/19 22:44 22:44 22:44 WBC 12.5 H Hgb 11.8 L Hct 35.4 L RDW 14.3 H Est GFR ( Amer) 57 L Est GFR (MDRD) Non-Af 47 L Urine Protein 30 H Urine Blood MODERATE H Ur Leukocyte Esterase LARGE H - Diagnostic Test Radiology reviewed: Reports reviewed Radiology results interpreted by me: 08/18/19 00:15 Transvaginal US 08/17/19 22:26 IMPRESSION: No acute sonographic abnormality. copyright 2010 [employer]- All Rights Reserved Discharge - Discharge Clinical Impression: Left lower quadrant abdominal pain Urinary tract infection Qualifiers: Urinary tract infection type: acute cystitis Hematuria presence: without hematuria Qualified Code(s): N30.00 - Acute cystitis without hematuria Condition: Stable Disposition: HOME, SELF-CARE Instructions: Abdominal Pain ([facility]), Urinary Tract Infection ([facility]), Cephalexin ([facility]) Additional Instructions: Your findings here today are consistent with a urinary tract infection. Please take all the antibiotic as prescribed. Follow-up with your primary care provider next week. If you develop fevers, vomiting, worsening abdominal pain, or any other new or concerning symptoms, please return immediately to the emergency department for reevaluation. Referrals: BENY OSPINA MD [Primary Care Provider] - Follow up as needed
[2019-08-18 00:27] VITALS: BP 126/52
== END 2019-08-18 00:28 | disposition home or self-care (01) ==
LOC: ER 21:48
DX: N30.00 Acute cystitis without hematuria (principal); R10.32 Left lower quadrant pain; R11.0 Nausea; I10 Essential (primary) hypertension; Z79.899 Other long term (current) drug therapy; J45.909 Unspecified asthma, uncomplicated
CPT/HCPCS: 36415; 76830; 80053; 81001; 85025; 93976; 99284

== ENCOUNTER 2019-08-31 07:54 | Inpatient (IN) | payer BC ==
[2019-08-31 09:08] LABS: APPEARANCE,URINE SLIGHTLY-CLOUDY; BILIRUBIN,URINE NEGATIVE (NEGATIVE); COLOR,URINE YELLOW; GLUCOSE, URINE NEGATIVE (NEGATIVE); KETONES,URINE NEGATIVE (NEGATIVE); PROTEIN,URINE NEGATIVE (NEGATIVE); URINE SPECIFIC GRAVITY 1.013; UROBILINOGEN,URINE NEGATIVE mg/dL (<2.0)
[2019-08-31] MEDS ORDERED: IPRATROPIUM/ALBUTEROL 0.5-2.5 MG/3 ML AMPUL NEB ONE (10:05)
[2019-08-31] MEDS ORDERED: PREDNISONE 20 MG TABLET PO ONE (10:05)
--- NOTE | 2019-08-31 10:07 | ER Document Report ---
ED General - General Chief Complaint: Abdominal Pain Stated Complaint: LOWER ABDOMINAL PAIN Time Seen by Provider: 08/31/19 09:48 Mode of Arrival: Ambulatory Information source: Patient Notes: Patient presents with left lower abdominal pain for the past 2 weeks. Patient states she was initially treated for UTI with Keflex. Patient states that she was not improving and saw her primary doctor and was placed on Cipro on 08/25/2019. Patient complains of continued left lower quadrant pain. No fever, no flank pain. Patient states she has had nausea and vomited twice today. No diarrhea. Patient does report decreased appetite over the past week. TRAVEL OUTSIDE OF THE [place] IN LAST 30 DAYS: No - HPI Onset: Other - 2 weeks Onset/Duration: Persistent Quality of pain: Achy, Dull Pain Level: 3 Associated symptoms: Nausea, Vomiting. denies: Chest pain, Nonproductive cough, Productive cough, Diarrhea, Fever, Shortness of breath Exacerbated by: Denies Relieved by: Denies Similar symptoms previously: No Recently seen / treated by doctor: Yes - Related Data Allergies/Adverse Reactions: erythromycin base [Erythromycin Base] Allergy (Severe, Verified 08/31/19 08:44) Chest pain Home Medications: Cipro. Metoprolol. Potassium. Plaquenil. Lasix. Xanax. Prilosec. 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 Family History: Reviewed & Not Pertinent - No history of DVT Patient has suicidal ideation: No Patient has homicidal ideation: No - Past Medical History Cardiac Medical History: Reports: Hx Hypertension - on meds Pulmonary Medical History: Reports: Hx Asthma - inhalers Renal/ Medical History: Denies: Hx Peritoneal Dialysis Musculoskeletal Medical History: Reports Hx Arthritis - rheumatoid Past Surgical History: Reports: Hx Section, Hx Cholecystectomy, Hx Tonsillectomy, Other - Perianal abscess - Immunizations Hx Diphtheria, Pertussis, Tetanus Vaccination: No Review of Systems - Review of Systems Constitutional: Recent illness - Recent treatment for UTI. denies: Fever EENT: No symptoms reported Cardiovascular: No symptoms reported Respiratory: Wheezing. denies: Cough Gastrointestinal: Abdominal pain, Nausea, Vomiting. denies: Diarrhea Genitourinary: No symptoms reported. denies: Dysuria, Flank pain Female Genitourinary: No symptoms reported Musculoskeletal: No symptoms reported. denies: Back pain Skin: No symptoms reported Hematologic/Lymphatic: No symptoms reported Neurological/Psychological: No symptoms reported Physical Exam - Vital signs Vitals: Temp Pulse Resp BP Pulse Ox 98.4 F 84 18 156/92 H 97 08/31/19 07:58 08/31/19 07:58 08/31/19 07:58 08/31/19 07:58 08/31/19 07:58 - General General appearance: Appears well, Alert In distress: None - HEENT Head: Normocephalic, Atraumatic Eyes: Normal Conjunctiva: Normal Nasal: Normal Mouth/Lips: Normal Mucous membranes: Normal Neck: Normal, Supple. No: Lymphadenopathy - Respiratory Respiratory status: No respiratory distress Chest status: Nontender Breath sounds: Nonproductive cough, Wheezing Chest palpation: Normal - Cardiovascular Rhythm: Regular Heart sounds: S1 appreciated, S2 appreciated Murmur: No - Abdominal Inspection: Obese Distension: No distension Bowel sounds: Normal Tenderness: Tender - Left lower quadrant, left side abdominal tenderness, lower pelvic tenderness, left worse than right Organomegaly: No organomegaly - Back Back: Normal, Nontender. No: CVA tenderness - Extremities General upper extremity: Normal inspection, Normal strength General lower extremity: Normal inspection, Normal strength - Neurological Neuro grossly intact: Yes Cognition: Normal [place] Coma Scale Eye Opening: Spontaneous Lexie Coma Scale Verbal: Oriented Lexie Coma Scale Motor: Obeys Commands [place] Coma Scale Total: 15 - Psychological Associated symptoms: Normal affect, Normal mood - Skin Skin Temperature: Warm Skin Moisture: Dry Skin Color: Normal Course - Re-evaluation Re-evalutation: 08/31/19 15:[address] scan reports reviewed, antibiotics started, attempted to consult with surgeon Dr. Sylvester, message relayed as he is currently in a surgical case. 08/31/19 15:58 Dr. Sylvester to bedside for examination. Feels that medicine should admit patient due to her underlying comorbidities. 08/31/19 16:[address] Dang who agrees to accept as admission to [facility]. Call placed to [facility] and report given. Recommends admission to medical floor at this time. - Vital Signs Vital signs: Temp Pulse Resp BP Pulse Ox 97.8 F 78 16 152/82 H 97 08/31/19 17:53 08/31/19 19:45 08/31/19 19:45 08/31/19 17:53 08/31/19 19:45 - Laboratory Result Diagrams: 08/31/19 10:47 08/31/19 13:01 Laboratory results interpreted by me: 08/31/19 08/31/19 10:47 13:01 WBC 12.9 H Creatinine 1.42 H Est GFR ( Amer) 48 L Est GFR (MDRD) Non-Af 39 L Glucose 115 H Labs- Entire Visit 08/31/19 08/31/19 08/31/19 08:50 10:47 10:47 WBC 12.9 H RBC 4.23 Hgb 12.6 Hct 37.5 MCV 89 MCH 29.8 MCHC 33.7 RDW 13.8 Plt Count 405 Lymph % (Auto) 29.0 [place] % (Auto) 5.7 Eos % (Auto) 1.9 Baso % (Auto) 0.9 Absolute Neuts (auto) 8.0 Absolute Lymphs (auto) 3.7 Absolute Monos (auto) 0.7 Absolute Eos (auto) 0.2 Absolute Basos (auto) 0.1 Seg Neutrophils % 62.5 Sodium Cancelled Potassium Cancelled Chloride Cancelled Carbon Dioxide Cancelled Anion Gap Cancelled BUN Cancelled Creatinine Cancelled Est GFR ( Amer) Cancelled Est GFR (Non-Af Amer) Cancelled Est GFR (MDRD) Non-Af Cancelled Glucose Cancelled Calcium Cancelled Total Bilirubin Cancelled Direct Bilirubin Cancelled Neonat Total Bilirubin Cancelled Neonat Direct Bilirubin Cancelled Neonat Indirect Bili Cancelled AST Cancelled ALT Cancelled Alkaline Phosphatase Cancelled Total Protein Cancelled Albumin Cancelled EGFR Cancelled Serum HCG, Qual Urine Color YELLOW Urine Appearance SLIGHTLY-CLOUDY Urine pH 6.0 Ur Specific Metaline 1.013 Urine Protein NEGATIVE Urine Glucose (UA) NEGATIVE Urine Ketones NEGATIVE Urine Blood NEGATIVE Urine Nitrite (Reflex) NEGATIVE Urine Bilirubin NEGATIVE Urine Urobilinogen NEGATIVE Leukocyte Esterase Rfl NEGATIVE Urine RBC (Auto) 1 Urine WBC (Reflex) 9 Squamous Epi Cells Auto 2 Urine Mucus (Auto) RARE Urine Ascorbic Acid NEGATIVE 08/31/19 08/31/19 08/31/19 10:47 13:01 13:01 WBC RBC Hgb Hct MCV MCH MCHC RDW Plt Count Lymph % (Auto) [place] % (Auto) Eos % (Auto) Baso % (Auto) Absolute Neuts (auto) Absolute Lymphs (auto) Absolute Monos (auto) Absolute Eos (auto) Absolute Basos (auto) Seg Neutrophils % Sodium 139.6 Potassium 4.2 Chloride 102 Carbon Dioxide 24 Anion Gap 14 BUN 14 Creatinine 1.42 H Est GFR ( Amer) 48 L Est GFR (Non-Af Amer) Est GFR (MDRD) Non-Af 39 L Glucose 115 H Calcium 9.7 Total Bilirubin 0.6 Direct Bilirubin 0.2 Neonat Total Bilirubin Not Reportable Neonat Direct Bilirubin Not Reportable Neonat Indirect Bili Not Reportable AST 22 ALT 21 Alkaline Phosphatase 93 Total Protein 7.3 Albumin 3.8 EGFR Serum HCG, Qual Cancelled NEGATIVE Urine Color Urine Appearance Urine pH Ur Specific Metaline Urine Protein Urine Glucose (UA) Urine Ketones Urine Blood Urine Nitrite (Reflex) Urine Bilirubin Urine Urobilinogen Leukocyte Esterase Rfl Urine RBC (Auto) Urine WBC (Reflex) Squamous Epi Cells Auto Urine Mucus (Auto) Urine Ascorbic Acid - Diagnostic Test Radiology reviewed: Reports reviewed Discharge - Discharge Clinical Impression: Colonic diverticular abscess, Abnormal renal function test Condition: Fair Disposition: ADMITTED INPATIENT Admitting Provider: Alton (Hospitalist) Unit Admitted: Medical Floor
[2019-08-31 11:06] LABS: ABSOLUTE BASOPHILS # (AUTO) 0.1 10^3/uL (0.0-0.2); ABSOLUTE EOSINOPHILS # (AUTO) 0.2 10^3/uL (0.0-0.6); ABSOLUTE LYMPHOCYTES (AUTO) 3.7 10^3/uL (0.5-4.7); ABSOLUTE MONOCYTES (AUTO) 0.7 10^3/uL (0.1-1.4); BASOPHILS % (AUTO) 0.9 % (0-2); EOSINOPHILS % (AUTO) 1.9 % (0-6); HEMATOCRIT 37.5 % (36.0-47.0); HEMOGLOBIN 12.6 g/dL (12.0-15.5); MEAN CORPUSCULAR HEMOGLOBIN 29.8 pg (27.0-33.4); MEAN CORPUSCULAR HGB CONC 33.7 g/dL (32.0-36.0); MEAN CORPUSCULAR VOLUME 89 fl (80-97); MONOCYTES % (AUTO) 5.7 % (3-13); PLATELET COUNT 405 10^3/uL (150-450); RED BLOOD COUNT 4.23 10^6/uL (3.72-5.28); RED CELL DISTRIBUTION WIDTH 13.8 % (11.5-14.0); SEGMENTED NEUTROPHILS % (AUTO) 62.5 % (42-78); TOTAL CELLS COUNTED % (AUTO) 100 %; WHITE BLOOD COUNT 12.9 10^3/uL (4.0-10.5)
[2019-08-31 13:35] LABS: ALBUMIN 3.8 g/dL (3.5-5.0); ALKALINE PHOSPHATASE 93 U/L (38-126); ANION GAP 14 (5-19); ASPARTATE AMINO TRANSFERASE 22 U/L (14-36); BILIRUBIN,DIRECT 0.2 mg/dL (0.0-0.4); BILIRUBIN,TOTAL 0.6 mg/dL (0.2-1.3); BLOOD UREA NITROGEN 14 mg/dL (7-20); CALCIUM 9.7 mg/dL (8.4-10.2); CARBON DIOXIDE 24 mmol/L (22-30); CHLORIDE 102 mmol/L (98-107); GLUCOSE 115 mg/dL (75-110); POTASSIUM 4.2 mmol/L (3.6-5.0); TOTAL PROTEIN 7.3 g/dL (6.3-8.2)
--- NOTE | 2019-08-31 15:04 | RADIOLOGY REPORT (SQ) ---
EXAM DESCRIPTION: CT ABD/PELVIS WITH IV ONLY COMPLETED DATE/TIME: 08/31/2019 2:42 pm REASON FOR STUDY: LLQ pain COMPARISON: None. TECHNIQUE: CT scan of the abdomen and pelvis performed using helical scanning technique with dynamic intravenous contrast injection. No oral contrast. Images reviewed with lung, soft tissue, and bone windows. Reconstructed coronal and sagittal MPR images reviewed. Delayed images for evaluation of the urinary system also acquired. All images stored on PACS. All CT scanners at this facility use dose modulation, iterative reconstruction, and/or weight based d osing when appropriate to reduce radiation dose to as low as reasonably achievable (ALARA). [facility]: Dose Right [facility]: CareDose [facility]: Dose Right [facility]: Teradose 4D [facility]: [employer] CONTRAST TYPE AND DOSE: contrast/concentration: Isovue 350.00 mg/ml; Total Contrast Delivered: 100.0 ml; Total Saline Delivered: 39.5 ml RENAL FUNCTION: None required. The patient is less than 50 years old. RADIATION DOSE: CT Rad equipment meets quality standard of care and radiation dose reduction techniq ues were employed. CTDIvol: 20.9 mGy. DLP: 1108 mGy-cm.. LIMITATIONS: None. FINDINGS: LOWER CHEST: No significant findings. No nodules or infiltrates. LIVER: Normal size. No masses. No dilated ducts. SPLEEN: Normal size. No focal lesions. PANCREAS: No masses. No significant calcifications. No adjacent inflammation or peripancreatic fluid collections. Pancreatic duct not dilated. GALLBLADDER: Surgically absent. ADRENAL GLANDS: No significant masses or asymmetry. RIGHT KIDNEY AND URETER: No solid masses. No significant calcifications. No hydronephrosis or hyd roureter. LEFT KIDNEY AND URETER: No solid masses. No significant calcifications. No hydronephrosis or hydr oureter. AORTA AND VESSELS: No aneurysm. No dissection. Renal arteries, SMA, celiac without stenosis. RETROPERITONEUM: No retroperitoneal adenopathy, hemorrhage or masses. BOWEL AND PERITONEAL CAVITY: Sigmoid diverticulosis with mild fat stranding adjacent to the anterior proximal to mid sigmoid colon. There is a fluid collection in the soft tissues anterior to the sigmo id colon and superior to the bladder dome which measures approximately 5.3 x 4.6 x 5.5 cm, and closel y abuts the anterior bladder dome, with a thin appearing fistulous connection to the mid sigmoid colo n (series 3, image 75, series 602, image 65). No free fluid or peritoneal masses. APPENDIX: Normal. PELVIS: No mass. No free fluid. Normal bladder. ABDOMINAL WALL: No masses. No hernias. BONES: No significant or acute findings. OTHER: No other significant finding. IMPRESSION: Sigmoid diverticulosis with mild fat stranding adjacent to the anterior proximal to mid sigmoid colon. There is a fluid collection in the soft tissues anterior to the sigmoid colon and sup erior to the bladder dome which measures approximately 5.3 x 4.6 x 5.5 cm, and closely abuts the ante rior bladder dome, with a thin appearing fistulous connection to the mid sigmoid colon (series 3, juhi ge 75, series 602, image 65). 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 Correlate for referable clinical symptoms of enterovesicular fistula. In fection or other complication of urachal remnant is a differential consideration given this appearanc e and location. TECHNICAL DOCUMENTATION: JOB ID: [id number] Quality ID # [id number]: Final reports with documentation of one or more dose reduction techniques (e.g., Au tomated exposure control, adjustment of the mA and/or kV according to patient size, use of iterative reconstruction technique) 2010 [employer]- All Rights Reserved Reading location - IP/workstation name: [email or web address]
[2019-08-31] MEDS ORDERED: METRONIDAZOLE 500 MG/NS RTU 500 MG/100 ML RTUPB IV ONE (15:20)
[2019-08-31] MEDS ORDERED: CEFEPIME 2 GM/D5W RTU 2 GM/50 ML RTUPB IV ONE (15:21)
[2019-08-31] MEDS ORDERED: NORMAL SALINE 1000 ML 1,000 ML IV ONE (15:23)
[2019-08-31] MEDS ORDERED: GLUCAGON,HUMAN RECOMB 1 MG INJ SUBCUT PRN (16:19)
[2019-08-31] MEDS ORDERED: DEXTROSE 40% GEL 15 GM TUBE PO PRN ×2 (16:19)
[2019-08-31] MEDS ORDERED: MAG HYDROX/AL HYDROX/SIMETH SUSP 30 ML UDCUP PO PRN (16:19)
[2019-08-31] MEDS ORDERED: DEXTROSE 50%-WATER 25 GM/50 ML DISP.SYRIN IV PRN ×2 (16:19)
[2019-08-31] MEDS ORDERED: ZOLPIDEM TARTRATE 5 MG TABLET PO PRN (16:19)
[2019-08-31] MEDS ORDERED: ONDANSETRON HCL INJ/PF 4 MG/2 ML SDV IV PRN (16:19)
[2019-08-31] MEDS ORDERED: HYDRALAZINE HCL INJ/PF 20 MG/1 ML SDV IV PRN (16:28)
--- NOTE | 2019-08-31 16:32 | PDOC H&P ---
History of Present Illness Admission Date/PCP: 08/31/19 16:11 BENY OSPINA MD Patient complains of: Abdominal pain History of Present Illness: REBECCA GOFF is a 49 year old female who is been treated outpatient for a possible UTI. Patient is in today with continued abdominal pain was found to have a possible abdominal fistula into her bladder. Patient states his pain is on the left side. She states no treatment Other than antibiotics all activities been an aggravating factor. Past Medical History Cardiac Medical History: Reports: Hypertension - on meds Denies: Coronary Artery Disease, Myocardial Infarction Pulmonary Medical History: Reports: Asthma - inhalers Denies: Bronchitis, Chronic Obstructive Pulmonary Disease (COPD), Pneumonia Neurological Medical History: Denies: Seizures Musculoskeltal Medical History: Reports: Arthritis - rheumatoid Hematology: Denies: Anemia Past Surgical History Past Surgical History: Reports: Section, Cholecystectomy, Tonsillectomy Social History Information Source: Patient Lives with: Family Smoking Status: Never Smoker Electronic Cigarette use?: No Frequency of Alcohol Use: None Hx Recreational Drug Use: No Drugs: None Hx Prescription Drug Abuse: No - Advance Directive Resuscitation Status: Full Code Family History Family History: Reviewed & Not Pertinent - No history of DVT Parental Family History Reviewed: Yes Children Family History Reviewed: Yes Sibling(s) Family History Reviewed.: Yes Medication/Allergy Home Medications: Metoprolol Tartrate [Lopressor 50 mg Tablet] 50 mg PO Q12H 03/24/14 Albuterol Sulfate [Albuterol Sulfate Hfa] 8.5 gm IH PRN PRN 08/31/19 Ciprofloxacin HCl [Cipro 750 mg Tablet] 750 mg PO BID 08/31/19 Escitalopram Oxalate [Lexapro 10 mg Tablet] 10 mg PO DAILY 08/31/19 Furosemide [Lasix] 40 mg PO DAILY 08/31/19 Hydroxychloroquine Sulfate [Plaquenil 200 mg Tablet] 200 mg PO DAILY 08/31/19 Potassium 2 meq PO DAILY 08/31/19 Allergies/Adverse Reactions: erythromycin base [Erythromycin Base] Allergy (Severe, Verified 08/31/19 08:44) Chest pain Review of Systems Constitutional: ABSENT: chills, fever(s), headache(s), weight gain, weight loss Eyes: ABSENT: visual disturbances Ears: ABSENT: hearing changes Cardiovascular: ABSENT: chest pain, dyspnea on exertion, edema, orthropnea, palpitations Respiratory: ABSENT: cough, hemoptysis Gastrointestinal: PRESENT: abdominal pain. ABSENT: constipation, diarrhea, hematemesis, hematochezia, nausea, vomiting Genitourinary: ABSENT: dysuria, hematuria Musculoskeletal: ABSENT: joint swelling Integumentary: ABSENT: rash, wounds Neurological: ABSENT: abnormal gait, abnormal speech, confusion, dizziness, focal weakness, syncope Psychiatric: ABSENT: anxiety, depression, homidical ideation, suicidal ideation Endocrine: ABSENT: cold intolerance, heat intolerance, polydipsia, polyuria Hematologic/Lymphatic: ABSENT: easy bleeding, easy bruising Physical Exam Vital Signs: Temp Pulse Resp BP Pulse Ox 98.7 F 77 17 145/80 H 97 08/31/19 15:59 08/31/19 15:59 08/31/19 15:59 08/31/19 15:59 08/31/19 15:59 Intake & Output 08/30/19 08/31/19 09/01/19 06:59 06:59 06:59 Weight 108.3 kg General appearance: PRESENT: no acute distress, well-developed, well-nourished Head exam: PRESENT: atraumatic, normocephalic Eye exam: PRESENT: conjunctiva pink, EOMI, PERRLA. ABSENT: scleral icterus Ear exam: PRESENT: normal external ear exam Mouth exam: PRESENT: moist, tongue midline Neck exam: ABSENT: carotid bruit, JVD, lymphadenopathy, thyromegaly Respiratory exam: PRESENT: clear to auscultation ciera. ABSENT: rales, rhonchi, wheezes Cardiovascular exam: PRESENT: RRR. ABSENT: diastolic murmur, rubs, systolic murmur Pulses: PRESENT: normal dorsalis pedis pul Vascular exam: PRESENT: normal capillary refill GI/Abdominal exam: PRESENT: normal bowel sounds, soft. ABSENT: distended, guarding, mass, organolmegaly, rebound, tenderness Rectal exam: PRESENT: deferred Extremities exam: PRESENT: full ROM. ABSENT: calf tenderness, clubbing, pedal edema Neurological exam: PRESENT: alert, awake, oriented to person, oriented to place, oriented to time, oriented to situation, CN II-XII grossly intact. ABSENT: motor sensory deficit Psychiatric exam: PRESENT: appropriate affect, normal mood. ABSENT: homicidal ideation, suicidal ideation Skin exam: PRESENT: dry, intact, warm. ABSENT: cyanosis, rash Results Laboratory Results: 08/31/19 10:47 08/31/19 13:01 08/31/19 08/31/19 08/31/19 08:50 10:47 10:47 WBC 12.9 H RBC 4.23 Hgb 12.6 Hct 37.5 MCV 89 MCH 29.8 MCHC 33.7 RDW 13.8 Plt Count 405 Seg Neutrophils % 62.5 Sodium Cancelled Potassium Cancelled Chloride Cancelled Carbon Dioxide Cancelled Anion Gap Cancelled BUN Cancelled Creatinine Cancelled Est GFR ( Amer) Cancelled Est GFR (Non-Af Amer) Cancelled Glucose Cancelled Calcium Cancelled Total Bilirubin Cancelled AST Cancelled Alkaline Phosphatase Cancelled Total Protein Cancelled Albumin Cancelled Serum HCG, Qual Urine Color YELLOW Urine Appearance SLIGHTLY-CLOUDY Urine pH 6.0 Ur Specific [place] 1.013 Urine Protein NEGATIVE Urine Glucose (UA) NEGATIVE Urine Ketones NEGATIVE Urine Blood NEGATIVE Urine RBC (Auto) 1 08/31/19 08/31/19 08/31/19 10:47 13:01 13:01 WBC RBC Hgb Hct MCV MCH MCHC RDW Plt Count Seg Neutrophils % Sodium 139.6 Potassium 4.2 Chloride 102 Carbon Dioxide 24 Anion Gap 14 BUN 14 Creatinine 1.42 H Est GFR ( Amer) 48 L Est GFR (Non-Af Amer) Glucose 115 H Calcium 9.7 Total Bilirubin 0.6 AST 22 Alkaline Phosphatase 93 Total Protein 7.3 Albumin 3.8 Serum HCG, Qual Cancelled NEGATIVE Urine Color Urine Appearance Urine pH Ur Specific [place] Urine Protein Urine Glucose (UA) Urine Ketones Urine Blood Urine RBC (Auto) Impressions: Abdomen/Pelvis CT 08/31/19 13:55 IMPRESSION: Sigmoid diverticulosis with mild fat stranding adjacent to the anterior proximal to mid sigmoid colon. There is a fluid collection in the soft tissues anterior to the sigmoid colon and superior to the bladder dome which measures approximately 5.3 x 4.6 x 5.5 cm, and closely abuts the anterior bladder dome, with a thin appearing fistulous connection to the mid sigmoid colon (series 3, image 75, series 602, image 65). Findings are concerning for sequelae of diverticular abscess with fistula involving the bladder. Correlate for referable clinical symptoms of enterovesicular fistula. Infection or other complication of urachal remnant is a differential consideration given this appearance and location. Assessment and Plan - Diagnosis (1) Colonic diverticular abscess Is this a current diagnosis for this admission?: Yes Plan: 08/31/2019-admit to medical surgical. N.p.o. Normal saline at 125 mL/h. Cipro 400 mg IV twice daily and Flagyl 500 mg IV every 6 hours. Surgical consultation await further recommendations. (2) Asthma Is this a current diagnosis for this admission?: Yes Plan: 08/31/[id number] 40 mg IV every 8, duo nebs every 12 with albuterol every 4 hours, Pulmicort 0.5 mg neb every 12 hours. Continue to follow. Not in acute exacerbation but having scattered wheeze (3) Acute kidney injury Is this a current diagnosis for this admission?: Yes Plan: 08/31/2019-admit to medical surgical. Hydrate with normal saline at 125 mL/h. Repeat BMP in a.m. (4) Hypertension Is this a current diagnosis for this admission?: Yes Plan: 08/31/2019-hydralazine 10 mg IV every 4 hours as needed systolic above 160 (5) Hyperglycemia Is this a current diagnosis for this admission?: Yes Plan: 08/31/2019-A1c in the a.m. Sliding scale insulin every 6 hours as patient is n.p.o. at this moment. - Time Time Spent with patient: 35 or more minutes - Inpatient Certification Based on my medical assessment, after consideration of the patient's comorbidities, presenting symptoms, or acuity I expect that the services needed warrant INPATIENT care.: Yes I certify that my determination is in accordance with my understanding of Medicare's requirements for reasonable and necessary INPATIENT services [42 CFR 412.3e].: Yes Medical Necessity: Need For IV Fluids, Need for Pain Control, Need for IV Antibiotics
--- NOTE | 2019-08-31 17:14 | PDOC CONSULTATION ---
Consultation Consult Date: 08/31/19 Attending physician:: DANICA NAVAS Provider Consulted: ISHA SYLVESTER Consult reason:: Intra-abdominal abscess History of Present Illness Admission Date/PCP: 08/31/19 16:11 BENY OSPINA MD Patient complains of: Abdominal pain History of Present Illness: REBECCA GOFF is a 49 year old female Presents emergency department via ground rescue complaining of abdominal pain for several weeks. Patient was seen in the emergency department several weeks ago diagnosed with possible urinary tract infection was treated with p.o. antibiotics. Because of persisting pain, primarily in her pelvic area, and decreased bowel frequency, she was reevaluated in the emergency department today where she was found to have significant lower abdominal tenderness. CT scan of the abdomen and pelvis without oral and without IV contrast demonstrated pelvic abscess anterior to the sigmoid colon with possible communication with either the bladder or the colon. She was felt to have complicated diverticular disease and was admitted to the medicine service with surgery consulting. Patient states she had a colonoscopy in the recent past by Dr. Orozco with no significant pathologic findings. Of note patient denies pneumaturia. She has a remote history of perianal abscess drainage by Dr. Sylvester, and previous cholecystectomy by Dr. Turner. Past Medical History Past Medical History: History rheumatoid arthritis, hypertension, asthma, hypokalemia Cardiac Medical History: Reports: Hypertension - on meds Denies: Coronary Artery Disease, Myocardial Infarction Pulmonary Medical History: Reports: Asthma - inhalers Denies: Bronchitis, Chronic Obstructive Pulmonary Disease (COPD), Pneumonia Neurological Medical History: Denies: Seizures Musculoskeltal Medical History: Reports: Arthritis - rheumatoid Hematology: Denies: Anemia Past Surgical History Past Surgical History: As per HPI Past Surgical History: Reports: Section, Cholecystectomy, Tonsillectomy Social History Lives with: Family Smoking Status: Never Smoker Electronic Cigarette use?: No Frequency of Alcohol Use: None Hx Recreational Drug Use: No Drugs: None Hx Prescription Drug Abuse: No - Advance Directive Resuscitation Status: Full Code Family History Family History: None, Reviewed & Not Pertinent - No history of DVT Parental Family History Reviewed: No Children Family History Reviewed: No Sibling(s) Family History Reviewed.: No Medication/Allergy Home Medications: Metoprolol Tartrate [Lopressor 50 mg Tablet] 50 mg PO Q12H 03/24/14 Albuterol Sulfate [Albuterol Sulfate Hfa] 8.5 gm IH PRN PRN 08/31/19 Ciprofloxacin HCl [Cipro 750 mg Tablet] 750 mg PO BID 08/31/19 Escitalopram Oxalate [Lexapro 10 mg Tablet] 10 mg PO DAILY 08/31/19 Furosemide [Lasix] 40 mg PO DAILY 08/31/19 Hydroxychloroquine Sulfate [Plaquenil 200 mg Tablet] 200 mg PO DAILY 08/31/19 Potassium 2 meq PO DAILY 08/31/19 Allergies/Adverse Reactions: erythromycin base [Erythromycin Base] Allergy (Severe, Verified 08/31/19 08:44) Chest pain Review of Systems Constitutional: PRESENT: as per HPI Eyes: ABSENT: visual disturbances Ears: ABSENT: hearing changes Cardiovascular: ABSENT: chest pain, dyspnea on exertion, edema, orthropnea, palpitations Gastrointestinal: PRESENT: as per HPI Genitourinary: PRESENT: as per HPI Musculoskeletal: ABSENT: joint swelling Integumentary: ABSENT: rash, wounds Neurological: ABSENT: abnormal gait, abnormal speech, confusion, dizziness, focal weakness, syncope Endocrine: ABSENT: cold intolerance, heat intolerance, polydipsia, polyuria Hematologic/Lymphatic: ABSENT: easy bleeding, easy bruising Physical Exam Vital Signs: Temp Pulse Resp BP Pulse Ox 98.7 F 77 17 145/80 H 97 08/31/19 15:59 08/31/19 15:59 08/31/19 15:59 08/31/19 15:59 08/31/19 15:59 Intake & Output 08/30/19 08/31/19 09/01/19 06:59 06:59 06:59 Weight 108.3 kg General appearance: PRESENT: no acute distress Head exam: PRESENT: normocephalic Eye exam: PRESENT: EOMI Mouth exam: PRESENT: dry mucosa Neck exam: PRESENT: full ROM Respiratory exam: PRESENT: clear to auscultation ciera Cardiovascular exam: PRESENT: RRR Pulses: PRESENT: normal carotid pulses, normal radial pulses, normal femoral pulses, normal dorsalis pedis pul GI/Abdominal exam: PRESENT: other - No peritoneal signs no rigidity no organomegaly. The abdomen is tender in the suprapubic area to deep palpation only. Musculoskeletal exam: PRESENT: full ROM Neurological exam: PRESENT: oriented to person, oriented to place Psychiatric exam: PRESENT: appropriate affect Results Laboratory Results: 08/31/19 10:47 08/31/19 13:01 08/31/19 08/31/19 08/31/19 08:50 10:47 10:47 WBC 12.9 H RBC 4.23 Hgb 12.6 Hct 37.5 MCV 89 MCH 29.8 MCHC 33.7 RDW 13.8 Plt Count 405 Seg Neutrophils % 62.5 Sodium Cancelled Potassium Cancelled Chloride Cancelled Carbon Dioxide Cancelled Anion Gap Cancelled BUN Cancelled Creatinine Cancelled Est GFR ( Amer) Cancelled Est GFR (Non-Af Amer) Cancelled Glucose Cancelled Calcium Cancelled Total Bilirubin Cancelled AST Cancelled Alkaline Phosphatase Cancelled Total Protein Cancelled Albumin Cancelled Serum HCG, Qual Urine Color YELLOW Urine Appearance SLIGHTLY-CLOUDY Urine pH 6.0 Ur Specific [place] 1.013 Urine Protein NEGATIVE Urine Glucose (UA) NEGATIVE Urine Ketones NEGATIVE Urine Blood NEGATIVE Urine RBC (Auto) 1 08/31/19 08/31/19 08/31/19 10:47 13:01 13:01 WBC RBC Hgb Hct MCV MCH MCHC RDW Plt Count Seg Neutrophils % Sodium 139.6 Potassium 4.2 Chloride 102 Carbon Dioxide 24 Anion Gap 14 BUN 14 Creatinine 1.42 H Est GFR ( Amer) 48 L Est GFR (Non-Af Amer) Glucose 115 H Calcium 9.7 Total Bilirubin 0.6 AST 22 Alkaline Phosphatase 93 Total Protein 7.3 Albumin 3.8 Serum HCG, Qual Cancelled NEGATIVE Urine Color Urine Appearance Urine pH Ur Specific [place] Urine Protein Urine Glucose (UA) Urine Ketones Urine Blood Urine RBC (Auto) Impressions: Abdomen/Pelvis CT 08/31/19 13:55 IMPRESSION: Sigmoid diverticulosis with mild fat stranding adjacent to the anterior proximal to mid sigmoid colon. There is a fluid collection in the soft tissues anterior to the sigmoid colon and superior to the bladder dome which measures approximately 5.3 x 4.6 x 5.5 cm, and closely abuts the anterior bladder dome, with a thin appearing fistulous connection to the mid sigmoid colon (series 3, image 75, series 602, image 65). Findings are concerning for sequelae of diverticular abscess with fistula involving the bladder. Correlate for referable clinical symptoms of enterovesicular fistula. Infection or other complication of urachal remnant is a differential consideration given this appearance and location. Assessment & Plan - Diagnosis (1) Colonic diverticular abscess Is this a current diagnosis for this admission?: Yes Plan: Impression: Pericolonic diverticular abscess consistent with [place] classificat ion 1 possible colo-vesicular fistula based on CT scan findings, but not confirmatory. Patient not septic, and not in need of emergent operation Recommendations: 1. Agree with admission to the medicine service, IV fluids, intravenous antibiotics and bowel rest 2. Will activate interventional radiology for placement of anterior approach percutaneous drain tomorrow if they are in agreement. Further imaging may be required to rule in or rule out colovesicular fistula. 3. No indication for operative intervention tonight. This was discussed with the patient and medical staff. (3) Asthma Is this a current diagnosis for this admission?: Yes (4) Hyperglycemia Is this a current diagnosis for this admission?: Yes - Time Time Spent: 30 to 50 Minutes Smoking Cessation Education: over 10 minutes Medications reviewed and adjusted accordingly: Yes Anticipated discharge: Home - Inpatient Certification Based on my medical assessment, after consideration of the patient's comorbidities, presenting symptoms, or acuity I expect that the services needed warrant INPATIENT care.: Yes I certify that my determination is in accordance with my understanding of Medicare's requirements for reasonable and necessary INPATIENT services [42 CFR 412.3e].: Yes Medical Necessity: Need For IV Fluids, Need for IV Antibiotics, Need for Surgery
[2019-08-31] MEDS: NORMAL SALINE 1000 ML 1,000 ML IV PRN (17:56)
[2019-08-31] MEDS: METRONIDAZOLE 500 MG/NS RTU 500 MG/100 ML RTUPB IV SCH (17:56)
[2019-08-31] MEDS: BUDESONIDE NEB 0.5 MG/2 ML AMPUL NEB SCH (19:44)
[2019-08-31] MEDS: ALBUTEROL SULFATE 0.083% NEB 2.5 MG/3 ML AMPUL NEB SCH (19:44)
[2019-08-31] MEDS: IPRATROPIUM BROMIDE 0.02% NEB 0.5 MG/2.5 ML AMPUL NEB SCH (19:44)
[2019-08-31 21:31] LABS: INTERNATIONAL RATION (INR) 1.09; PROTHROMBIN TIME 14.1 SEC (11.4-15.4)
[2019-08-31 21:32] LABS: PARTIAL THROMBOPLASTIN TIME 32.6 SEC (23.5-35.8)
[2019-08-31] MEDS: METOPROLOL TARTRATE 50 MG TABLET PO SCH (22:08)
[2019-08-31] MEDS: CIPROFLOXACIN 400 MG/D5W RTU 400 MG/200 ML RTUPB IV SCH (22:09)
[2019-08-31] MEDS: PANTOPRAZOLE SODIUM 40 MG VIAL IV SCH (22:09)
[2019-08-31] MEDS: METHYLPREDNISOLONE INJ 40 MG/1 ML SDV IV SCH (22:09)
[2019-09-01] MEDS: ALBUTEROL SULFATE 0.083% NEB 2.5 MG/3 ML AMPUL NEB SCH ×6 (00:15→19:46)
[2019-09-01] MEDS: METRONIDAZOLE 500 MG/NS RTU 500 MG/100 ML RTUPB IV SCH ×4 (00:16→17:02)
[2019-09-01] MEDS: METHYLPREDNISOLONE INJ 40 MG/1 ML SDV IV SCH ×2 (05:47→14:35)
[2019-09-01] MEDS: NORMAL SALINE 1000 ML 1,000 ML IV PRN ×2 (05:50→17:00)
[2019-09-01 06:02] LABS: HEMATOCRIT 32.1 % (36.0-47.0); HEMOGLOBIN 10.8 g/dL (12.0-15.5); MEAN CORPUSCULAR HEMOGLOBIN 29.8 pg (27.0-33.4); MEAN CORPUSCULAR HGB CONC 33.7 g/dL (32.0-36.0); MEAN CORPUSCULAR VOLUME 89 fl (80-97); PLATELET COUNT 308 10^3/uL (150-450); RED BLOOD COUNT 3.63 10^6/uL (3.72-5.28); RED CELL DISTRIBUTION WIDTH 13.7 % (11.5-14.0); WHITE BLOOD COUNT 10.6 10^3/uL (4.0-10.5)
[2019-09-01 06:28] LABS: ANION GAP 14 (5-19); BLOOD UREA NITROGEN 15 mg/dL (7-20); CALCIUM 9.2 mg/dL (8.4-10.2); CARBON DIOXIDE 20 mmol/L (22-30); CHLORIDE 108 mmol/L (98-107); GLUCOSE 150 mg/dL (75-110); PHOSPHORUS 3.3 mg/dL (2.5-4.5); POTASSIUM 4.3 mmol/L (3.6-5.0)
[2019-09-01] MEDS: IPRATROPIUM BROMIDE 0.02% NEB 0.5 MG/2.5 ML AMPUL NEB SCH ×2 (08:04→19:46)
[2019-09-01] MEDS: BUDESONIDE NEB 0.5 MG/2 ML AMPUL NEB SCH ×2 (08:05→19:47)
[2019-09-01] MEDS: POTASSIUM CHLORIDE 10 MEQ TABLET.ER PO SCH (09:24)
[2019-09-01] MEDS: METOPROLOL TARTRATE 50 MG TABLET PO SCH ×2 (09:24→21:05)
[2019-09-01] MEDS: HYDROXYCHLOROQUINE SULFATE 200 MG TABLET PO SCH (09:24)
[2019-09-01] MEDS: CIPROFLOXACIN 400 MG/D5W RTU 400 MG/200 ML RTUPB IV SCH ×2 (09:24→22:53)
[2019-09-01] MEDS: ESCITALOPRAM OXALATE 10 MG TABLET PO SCH (09:25)
[2019-09-01] MEDS: FUROSEMIDE 40 MG TABLET PO SCH (09:25)
[2019-09-01] MEDS: PANTOPRAZOLE SODIUM 40 MG VIAL IV SCH ×2 (09:25→22:50)
[2019-09-01] MEDS ORDERED: MIDAZOLAM 2 MG/2 ML INJ ONE (11:08)
[2019-09-01] MEDS ORDERED: FENTANYL CITRATE INJ/PF 100 MCG/2 ML AMPUL ONE (11:08)
[2019-09-01] MEDS: HYDROMORPHONE HCL INJ/PF 2 MG/ML AMPULE IV PRN ×2 (12:41→22:50)
--- NOTE | 2019-09-01 12:45 | RADIOLOGY REPORT (SQ) ---
EXAM DESCRIPTION: CT NEEDLE PLACEMENT COMPLETE DATE/TIME: 09/01/2019 12:08 pm REASON FOR STUDY: PELVIC ABSCESS DRAINAGE FINDINGS: Please see combined report for performance of procedure and radiologic supervision and int erpretation. IMPRESSION: Please see combined report for performance of procedure and radiologic supervision and i nterpretation. Reading location - IP/workstation name: [email or web address]
--- NOTE | 2019-09-01 12:45 | RADIOLOGY REPORT (SQ) ---
EXAM DESCRIPTION: CT GUIDED PERCUT DRAIN W/CATH COMPLETED DATE/TIME: 09/01/2019 12:08 pm REASON FOR STUDY: Drain pelvic abscess COMPARISON: CT dated 08/31/2019 FLUORO TIME: 11.1 seconds 63 images saved to PACS. LIMITATIONS: None. PROCEDURE: After obtaining informed consent, the patient was brought to the CT suite and was placed supine on the CT gurney. The patient was prepped and draped in the usual sterile fashion . Axial juhi ges were obtained for targeting of theupper pelvic abscess. An appropriate access site was selected. IV conscious sedation was administered and physician direction by the registered nurse using 2.0 mil ligrams of Versed and 50 micrograms of fentanyl. Physiologic monitoring was provided before, during, and after sedation. The total sedation time was 30 minutes. Documentation face to face time, the performing proceduralist, spent monitoring the patient: 27minute s. Using CT fluoroscopic guidance the abscess in the left lower quadrant was cannulated. There was imme diate return of purulent fluid. A guidewire was placed and sequential dilatation performed. An 8 Fr ench APD catheter was placed. Approximately 15 mL of purulent fluid was removed and sent to patholog y for evaluation. Catheter was then secured to the skin and connected to accordion drainage bag. Th ere were no complications. IMPRESSION: Successful CT-guided placement of drainage catheter for abscess in the left lower quadra nt as described. Samples were obtained and sent to pathology for evaluation. COMMENT: Patient medication list reviewed:Yes- Quality ID# 130:Eligible professional attests to docu menting in the medical record they obtained, updated, or reviewed the patient's current medications. Quality ID #76: The patient was prepped and draped using maximum sterile barrier technique including cap, mask, sterile gown, sterile gloves, a large sterile sheet, hand hygiene, and 2% Chlorhexidine fo r cutaneous antisepsis. When ultrasound is used, sterile ultrasound techniques are followed requiring sterile gel and sterile probes. Quality ID 145: Final reports for procedures using fluoroscopy that document radiation exposure will jacinda, or exposure time and number of fluorographic images (if radiation exposure indices are not avail able) Quality ID# 436: Final reports with documentation of one or more dose reduction techniques (e.g., Aut omated exposure control, adjustment of the mA and/or kV according to patient size, use of iterative r econstruction technique) TECHNICAL DOCUMENTATION: JOB ID: [id number] [email or web address]- All Rights Reserved rev-01/01 Reading location - IP/workstation name: [email or web address]
--- NOTE | 2019-09-01 15:52 | PDOC PROGRESS REPORT ---
Subjective Progress Note for:: 09/01/19 Subjective:: Pains left lower quadrant +flatus Hungry Reason For Visit: POSSIBLE ABDOMINAL FISTULA Physical Exam Vital Signs: Temp Pulse Resp BP Pulse Ox 97.5 F 63 16 110/60 96 09/01/19 15:21 09/01/19 15:21 09/01/19 15:21 09/01/19 15:21 09/01/19 15:21 Intake & Output 08/31/19 09/01/19 09/02/19 06:59 06:59 06:59 Intake Total 2772 300 Balance 2772 300 Weight 108.6 kg Exam: Mild tenderness left lower quadrant Drain in placed. Less pains after drain placement Results Laboratory Results: 09/01/19 05:06 09/01/19 05:06 09/01/19 09/01/19 05:06 05:06 WBC 10.6 H RBC 3.63 L Hgb 10.8 L Hct 32.1 L MCV 89 MCH 29.8 MCHC 33.7 RDW 13.7 Plt Count 308 Sodium 141.7 Potassium 4.3 Chloride 108 H Carbon Dioxide 20 L Anion Gap 14 BUN 15 Creatinine 1.13 Est GFR ( Amer) > 60 Glucose 150 H Calcium 9.2 Phosphorus 3.3 Magnesium 1.8 Impressions: Abdomen/Pelvis CT 08/31/19 13:55 IMPRESSION: Sigmoid diverticulosis with mild fat stranding adjacent to the anterior proximal to mid sigmoid colon. There is a fluid collection in the soft tissues anterior to the sigmoid colon and superior to the bladder dome which measures approximately 5.3 x 4.6 x 5.5 cm, and closely abuts the anterior bladder dome, with a thin appearing fistulous connection to the mid sigmoid colon (series 3, image 75, series 602, image 65). Findings are concerning for sequelae of diverticular abscess with fistula involving the bladder. Correlate for referable clinical symptoms of enterovesicular fistula. Infection or other complication of urachal remnant is a differential consideration given this appearance and location. Guidance Needle Placement CT 09/01/19 00:00 IMPRESSION: Please see combined report for performance of procedure and radiologic supervision and interpretation. Percutaneous Drainage 09/01/19 08:00 IMPRESSION: Successful CT-guided placement of drainage catheter for abscess in the left lower quadrant as described. Samples were obtained and sent to pathology for evaluation. Assessment & Plan - Diagnosis (1) Colonic diverticular abscess Is this a current diagnosis for this admission?: Yes - Time Time Spent with patient: 15-24 minutes - Inpatient Certification Medical Necessity: Need for IV Antibiotics - Plan Summary Plan Summary: Just had successful placement of catheter for drainage of's diverticular abscess. Continue IV antibiotics Start clears
--- NOTE | 2019-09-01 19:14 | PDOC PROGRESS REPORT ---
Subjective Progress Note for:: 09/01/19 Subjective:: Patient experiencing some abdominal pain still. Had IR drain placed today. Denies any nausea fever chills. Reason For Visit: POSSIBLE ABDOMINAL FISTULA Physical Exam Vital Signs: Temp Pulse Resp BP Pulse Ox 97.5 F 70 16 110/60 97 09/01/19 15:21 09/01/19 17:14 09/01/19 17:14 09/01/19 15:21 09/01/19 17:14 Intake & Output 08/31/19 09/01/19 09/02/19 06:59 06:59 06:59 Intake Total 2772 1300 Balance 2772 1300 Weight 108.6 kg General appearance: PRESENT: no acute distress, cooperative Respiratory exam: PRESENT: clear to auscultation ciera, unlabored. ABSENT: tachypnea, wheezes Cardiovascular exam: PRESENT: RRR, +S1, +S2. ABSENT: tachycardia GI/Abdominal exam: PRESENT: normal bowel sounds, soft, tenderness. ABSENT: firm, guarding, rebound, rigid Neurological exam: PRESENT: alert, awake Results Laboratory Results: 09/01/19 05:06 09/01/19 05:06 09/01/19 09/01/19 05:06 05:06 WBC 10.6 H RBC 3.63 L Hgb 10.8 L Hct 32.1 L MCV 89 MCH 29.8 MCHC 33.7 RDW 13.7 Plt Count 308 Sodium 141.7 Potassium 4.3 Chloride 108 H Carbon Dioxide 20 L Anion Gap 14 BUN 15 Creatinine 1.13 Est GFR ( Amer) > 60 Glucose 150 H Calcium 9.2 Phosphorus 3.3 Magnesium 1.8 Impressions: Abdomen/Pelvis CT 08/31/19 13:55 IMPRESSION: Sigmoid diverticulosis with mild fat stranding adjacent to the anterior proximal to mid sigmoid colon. There is a fluid collection in the soft tissues anterior to the sigmoid colon and superior to the bladder dome which measures approximately 5.3 x 4.6 x 5.5 cm, and closely abuts the anterior bladder dome, with a thin appearing fistulous connection to the mid sigmoid colon (series 3, image 75, series 602, image 65). Findings are concerning for sequelae of diverticular abscess with fistula involving the bladder. Correlate for referable clinical symptoms of enterovesicular fistula. Infection or other complication of urachal remnant is a differential consideration given this appearance and location. Guidance Needle Placement CT 09/01/19 00:00 IMPRESSION: Please see combined report for performance of procedure and radiologic supervision and interpretation. Percutaneous Drainage 09/01/19 08:00 IMPRESSION: Successful CT-guided placement of drainage catheter for abscess in the left lower quadrant as described. Samples were obtained and sent to pathology for evaluation. Assessment and Plan - Diagnosis (1) Colonic diverticular abscess Is this a current diagnosis for this admission?: Yes Plan: IR placement of drain on 09/01/2019 Continue ciprofloxacin and Flagyl Surgery following Started on clear liquids Pain control with Dilaudid every 3 hours as needed (2) Hypertension Is this a current diagnosis for this admission?: Yes Plan: 08/31/2019-hydralazine 10 mg IV every 4 hours as needed systolic above 160 (3) Prediabetes Is this a current diagnosis for this admission?: Yes Plan: A1c showing 6.4 Diabetic diet (4) Asthma Is this a current diagnosis for this admission?: Yes Plan: I will discontinue steroids at this time and just continue with breathing treatments and nebulizers - Time Time Spent with patient: Less than 15 minutes
[2019-09-02] MEDS: ALBUTEROL SULFATE 0.083% NEB 2.5 MG/3 ML AMPUL NEB SCH ×3 (00:35→08:44)
[2019-09-02] MEDS: METRONIDAZOLE 500 MG/NS RTU 500 MG/100 ML RTUPB IV SCH ×5 (01:21→23:53)
[2019-09-02] MEDS: HYDROMORPHONE HCL INJ/PF 2 MG/ML AMPULE IV PRN ×4 (03:55→23:51)
[2019-09-02 07:08] LABS: HEMATOCRIT 31.4 % (36.0-47.0); HEMOGLOBIN 10.3 g/dL (12.0-15.5); MEAN CORPUSCULAR HEMOGLOBIN 29.4 pg (27.0-33.4); MEAN CORPUSCULAR VOLUME 89 fl (80-97); PLATELET COUNT 330 10^3/uL (150-450); RED BLOOD COUNT 3.52 10^6/uL (3.72-5.28); RED CELL DISTRIBUTION WIDTH 13.8 % (11.5-14.0); WHITE BLOOD COUNT 16.1 10^3/uL (4.0-10.5)
[2019-09-02 07:28] LABS: ANION GAP 9 (5-19); BLOOD UREA NITROGEN 15 mg/dL (7-20); CALCIUM 9.2 mg/dL (8.4-10.2); CARBON DIOXIDE 24 mmol/L (22-30); CHLORIDE 110 mmol/L (98-107); GLUCOSE 106 mg/dL (75-110); POTASSIUM 3.7 mmol/L (3.6-5.0)
[2019-09-02] MEDS: NORMAL SALINE 1000 ML 1,000 ML IV PRN ×2 (07:37→21:06)
[2019-09-02] MEDS: BUDESONIDE NEB 0.5 MG/2 ML AMPUL NEB SCH (08:43)
[2019-09-02] MEDS: IPRATROPIUM BROMIDE 0.02% NEB 0.5 MG/2.5 ML AMPUL NEB SCH (08:43)
[2019-09-02] MEDS: PANTOPRAZOLE SODIUM 40 MG VIAL IV SCH ×2 (10:54→21:06)
[2019-09-02] MEDS: CIPROFLOXACIN 400 MG/D5W RTU 400 MG/200 ML RTUPB IV SCH ×2 (10:55→21:06)
[2019-09-02] MEDS: FUROSEMIDE 40 MG TABLET PO SCH ×2 (10:55→12:21)
[2019-09-02] MEDS: METOPROLOL TARTRATE 50 MG TABLET PO SCH ×2 (10:55→21:06)
[2019-09-02] MEDS: POTASSIUM CHLORIDE 10 MEQ TABLET.ER PO SCH (10:55)
[2019-09-02] MEDS: ESCITALOPRAM OXALATE 10 MG TABLET PO SCH (10:55)
[2019-09-02] MEDS: HYDROXYCHLOROQUINE SULFATE 200 MG TABLET PO SCH (10:58)
[2019-09-02] MEDS ORDERED: ALBUTEROL SULFATE 0.083% NEB 2.5 MG/3 ML AMPUL NEB PRN (11:14)
--- NOTE | 2019-09-02 18:02 | PDOC PROGRESS REPORT ---
Subjective Progress Note for:: 09/02/19 Subjective:: 49-year-old female with complicated diverticulitis. The patient has a pelvic abscess, associated with her diverticulitis. She is status post percutaneous drainage. Today, there is serosanguineous fluid in the drain. The patient reports that she is feeling better. She has some pain at the insertion site, but denies fevers, chills, worsening abdominal pain, nausea, vomiting, chest pain, shortness of breath, headache. Reason For Visit: POSSIBLE ABDOMINAL FISTULA Physical Exam Vital Signs: Temp Pulse Resp BP Pulse Ox 97.5 F 63 16 135/77 H 96 09/02/19 15:41 09/02/19 15:41 09/02/19 15:41 09/02/19 15:41 09/02/19 15:41 Intake & Output 09/01/19 09/02/19 09/03/19 06:59 06:59 06:59 Intake Total 2772 3520 1046 Output Total 10 Balance 2772 3510 1046 Weight 108.6 kg 108 kg General appearance: PRESENT: no acute distress, other - Overweight Head exam: PRESENT: atraumatic, normocephalic Eye exam: PRESENT: EOMI, PERRLA. ABSENT: scleral icterus Mouth exam: PRESENT: moist, neck supple Neck exam: ABSENT: meningismus, tenderness, thyromegaly, tracheal deviation Respiratory exam: PRESENT: clear to auscultation ciera, unlabored. ABSENT: chest wall tenderness, wheezes Cardiovascular exam: PRESENT: RRR Vascular exam: PRESENT: normal capillary refill GI/Abdominal exam: PRESENT: soft, tenderness - Left lower quadrant/left suprapubic area. Rectal exam: PRESENT: deferred Extremities exam: ABSENT: clubbing Musculoskeletal exam: ABSENT: deformity Neurological exam: PRESENT: alert, awake, oriented to person, oriented to place, oriented to time, oriented to situation, CN II-XII grossly intact. ABSENT: mo tor sensory deficit Psychiatric exam: PRESENT: agitated, anxious, depressed Skin exam: ABSENT: cyanosis, erythema, jaundice Results Laboratory Results: 09/02/19 06:43 09/02/19 06:43 09/02/19 09/02/19 06:43 06:43 WBC 16.1 H RBC 3.52 L Hgb 10.3 L Hct 31.4 L MCV 89 MCH 29.4 MCHC 33.0 RDW 13.8 Plt Count 330 Sodium 143.4 Potassium 3.7 Chloride 110 H Carbon Dioxide 24 Anion Gap 9 BUN 15 Creatinine 1.11 Est GFR ( Amer) > 60 Glucose 106 Calcium 9.2 Impressions: Abdomen/Pelvis CT 08/31/19 13:55 IMPRESSION: Sigmoid diverticulosis with mild fat stranding adjacent to the a nterior proximal to mid sigmoid colon. There is a fluid collection in the soft tissues anterior to the sigmoid colon and superior to the bladder dome which measures approximately 5.3 x 4.6 x 5.5 cm, and closely abuts the anterior bladder dome, with a thin appearing fistulous connection to the mid sigmoid colon (series 3, image 75, series 602, image 65). Findings are concerning for sequelae of diverticular abscess with fistula involving the bladder. Correlate for referable clinical symptoms of enterovesicular fistula. Infection or other complication of urachal remnant is a differential consideration given this appearance and location. Guidance Needle Placement CT 09/01/19 00:00 IMPRESSION: Please see combined report for performance of procedure and radiolo gic supervision and interpretation. Percutaneous Drainage 09/01/19 08:00 IMPRESSION: Successful CT-guided placement of drainage catheter for abscess in the left lower quadrant as described. Samples were obtained and sent to pathology for evaluation. Assessment & Plan - Diagnosis (1) Colonic diverticular abscess Is this a current diagnosis for this admission?: Yes - Time Time Spent with patient: Less than 15 minutes - Plan Summary Plan Summary: This is a 49-year-old female with complicated diverticulitis. Her diverticular abscess has been drained by interventional radiology. Overall, she feels better. She denies fevers or chills. Continue with intravenous antibiotics. She still exhibits a leukocytosis. Repeat CBC tomorrow to follow the trend. Hopefully with intravenous antibiotics and percutaneous drainage, her diverticulitis will resolve without surgical intervention acutely. I have discussed with her at length the need for follow-up colonoscopy in 6 to 8 weeks. She should also consider elective sigmoid colon resection after she has adequately healed (to decrease the risk of recurrent diverticulitis and the need for a possible Arteaga's procedure). The patient has expressed understanding of this. Surgery will continue to follow.
--- NOTE | 2019-09-02 18:12 | PDOC PROGRESS REPORT ---
Subjective Progress Note for:: 09/02/19 Subjective:: Patient is doing well. Required pain medication for abdominal pain once yesterday evening. Denies fever chills. Denies shortness of breath. Reason For Visit: POSSIBLE ABDOMINAL FISTULA Physical Exam Vital Signs: Temp Pulse Resp BP Pulse Ox 97.5 F 63 16 135/77 H 96 09/02/19 15:41 09/02/19 15:41 09/02/19 15:41 09/02/19 15:41 09/02/19 15:41 Intake & Output 09/01/19 09/02/19 09/03/19 06:59 06:59 06:59 Intake Total 2772 3520 1046 Output Total 10 Balance 2772 3510 1046 Weight 108.6 kg 108 kg General appearance: PRESENT: no acute distress, cooperative Neck exam: ABSENT: JVD Respiratory exam: PRESENT: clear to auscultation ciera Cardiovascular exam: PRESENT: +S1, +S2 GI/Abdominal exam: PRESENT: soft, tenderness. ABSENT: guarding, rebound, rigid Neurological exam: PRESENT: alert, awake Results Laboratory Results: 09/02/19 06:43 09/02/19 06:43 09/02/19 09/02/19 06:43 06:43 WBC 16.1 H RBC 3.52 L Hgb 10.3 L Hct 31.4 L MCV 89 MCH 29.4 MCHC 33.0 RDW 13.8 Plt Count 330 Sodium 143.4 Potassium 3.7 Chloride 110 H Carbon Dioxide 24 Anion Gap 9 BUN 15 Creatinine 1.11 Est GFR ( Amer) > 60 Glucose 106 Calcium 9.2 Impressions: Abdomen/Pelvis CT 08/31/19 13:55 IMPRESSION: Sigmoid diverticulosis with mild fat stranding adjacent to the anterior proximal to mid sigmoid colon. There is a fluid collection in the soft tissues anterior to the sigmoid colon and superior to the bladder dome which measures approximately 5.3 x 4.6 x 5.5 cm, and closely abuts the anterior bladder dome, with a thin appearing fistulous connection to the mid sigmoid colon (series 3, image 75, series 602, image 65). Findings are concerning for sequelae of diverticular abscess with fistula involving the bladder. Correlate for referable clinical symptoms of enterovesicular fistula. Infection or other complication of urachal remnant is a differential consideration given this appearance and location. Guidance Needle Placement CT 09/01/19 00:00 IMPRESSION: Please see combined report for performance of procedure and radiologic supervision and interpretation. Percutaneous Drainage 09/01/19 08:00 IMPRESSION: Successful CT-guided placement of drainage catheter for abscess in the left lower quadrant as described. Samples were obtained and sent to [facility] gr[facility] for evaluation. Assessment and Plan - Diagnosis (1) Colonic diverticular abscess Is this a current diagnosis for this admission?: Yes Plan: IR placement of drain on 09/01/2019 Continue ciprofloxacin and Flagyl Surgery following Continue on clear liquids Pain control with Dilaudid every 3 hours as needed (2) Hypertension Is this a current diagnosis for this admission?: Yes Plan: 08/31/2019-hydralazine 10 mg IV every 4 hours as needed systolic above 160 (3) Prediabetes Is this a current diagnosis for this admission?: Yes Plan: A1c showing 6.4 Diabetic diet (4) Asthma Is this a current diagnosis for this admission?: Yes Plan: Nebs as needed - Time Time Spent with patient: Less than 15 minutes
[2019-09-03] MEDS: METRONIDAZOLE 500 MG/NS RTU 500 MG/100 ML RTUPB IV SCH ×3 (05:26→17:50)
[2019-09-03 06:59] LABS: HEMATOCRIT 29.8 % (36.0-47.0); HEMOGLOBIN 9.9 g/dL (12.0-15.5); MEAN CORPUSCULAR HEMOGLOBIN 29.9 pg (27.0-33.4); MEAN CORPUSCULAR HGB CONC 33.4 g/dL (32.0-36.0); MEAN CORPUSCULAR VOLUME 90 fl (80-97); PLATELET COUNT 312 10^3/uL (150-450); RED BLOOD COUNT 3.33 10^6/uL (3.72-5.28); RED CELL DISTRIBUTION WIDTH 14.1 % (11.5-14.0); WHITE BLOOD COUNT 9.5 10^3/uL (4.0-10.5)
[2019-09-03 07:29] LABS: ANION GAP 8 (5-19); BLOOD UREA NITROGEN 13 mg/dL (7-20); CALCIUM 8.6 mg/dL (8.4-10.2); CARBON DIOXIDE 25 mmol/L (22-30); CHLORIDE 111 mmol/L (98-107); GLUCOSE 76 mg/dL (75-110); POTASSIUM 4.1 mmol/L (3.6-5.0)
[2019-09-03] MEDS: HYDROMORPHONE HCL INJ/PF 2 MG/ML AMPULE IV PRN (08:45)
[2019-09-03] MEDS: CIPROFLOXACIN 400 MG/D5W RTU 400 MG/200 ML RTUPB IV SCH ×2 (11:07→22:52)
[2019-09-03] MEDS: HYDROXYCHLOROQUINE SULFATE 200 MG TABLET PO SCH (11:08)
[2019-09-03] MEDS: ESCITALOPRAM OXALATE 10 MG TABLET PO SCH (11:13)
[2019-09-03] MEDS: FUROSEMIDE 40 MG TABLET PO SCH (11:13)
[2019-09-03] MEDS: METOPROLOL TARTRATE 50 MG TABLET PO SCH ×2 (11:14→22:50)
[2019-09-03] MEDS: PANTOPRAZOLE SODIUM 40 MG VIAL IV SCH ×2 (11:14→22:50)
[2019-09-03] MEDS: POTASSIUM CHLORIDE 10 MEQ TABLET.ER PO SCH (11:15)
--- NOTE | 2019-09-03 11:34 | PDOC PROGRESS REPORT ---
Subjective Progress Note for:: 09/03/19 Subjective:: pains primarily along drain catheter site in the left lower quadrant area. As about 10 cc of purulent material in the drain reservoir. Still passing flatus. Reason For Visit: POSSIBLE ABDOMINAL FISTULA Physical Exam Vital Signs: Temp Pulse Resp BP Pulse Ox 98.0 F 86 16 130/48 H 98 09/03/19 08:03 09/03/19 11:25 09/03/19 11:25 09/03/19 08:03 09/03/19 08:03 Intake & Output 09/02/19 09/03/19 09/04/19 06:59 06:59 06:59 Intake Total 3520 4174 Output Total 10 10 Balance 3510 4164 Weight 108 kg 111.8 kg Exam: Abdomen is soft with minimal tenderness in the left lower quadrant area Results Laboratory Results: 09/03/19 05:19 09/03/19 05:19 09/03/19 09/03/19 05:19 05:19 WBC 9.5 RBC 3.33 L Hgb 9.9 L Hct 29.8 L MCV 90 MCH 29.9 MCHC 33.4 RDW 14.1 H Plt Count 312 Sodium 144.1 Potassium 4.1 Chloride 111 H Carbon Dioxide 25 Anion Gap 8 BUN 13 Creatinine 1.21 Est GFR ( Amer) 57 L Glucose 76 Calcium 8.6 Impressions: Abdomen/Pelvis CT 08/31/19 13:55 IMPRESSION: Sigmoid diverticulosis with mild fat stranding adjacent to the anterior proximal to mid sigmoid colon. There is a fluid collection in the soft tissues anterior to the sigmoid colon and superior to the bladder dome which measures approximately 5.3 x 4.6 x 5.5 cm, and closely abuts the anterior bladder dome, with a thin appearing fistulous connection to the mid sigmoid colon (series 3, image 75, series 602, image 65). Findings are concerning for sequelae of diverticular abscess with fistula involving the bladder. Correlate for referable clinical symptoms of enterovesicular fistula. Infection or other complication of urachal remnant is a differential consideration given this appearance and location. Guidance Needle Placement CT 09/01/19 00:00 IMPRESSION: Please see combined report for performance of procedure and rad iologic supervision and interpretation. Percutaneous Drainage 09/01/19 08:00 IMPRESSION: Successful CT-guided placement of drainage catheter for abscess in the left lower quadrant as described. Samples were obtained and sent to pathology for evaluation. Assessment & Plan - Diagnosis (1) Colonic diverticular abscess Is this a current diagnosis for this admission?: Yes (2) Diverticular disease of intestine with perforation and abscess Is this a current diagnosis for this admission?: Yes - Time Time Spent with patient: 15-24 minutes - Inpatient Certification Medical Necessity: Need for IV Antibiotics - Plan Summary Plan Summary: Continue IV antibiotics Increase diet to full liquids today
[2019-09-03] MEDS ORDERED: FLUCONAZOLE 100 MG TABLET PO ONE (13:59)
--- NOTE | 2019-09-03 14:02 | PDOC PROGRESS REPORT ---
Subjective Progress Note for:: 09/03/19 Subjective:: Patient doing well. She complains of oral thrush today. Thinks is secondary to antibiotics. Abdominal pain is mild. Reason For Visit: POSSIBLE ABDOMINAL FISTULA Physical Exam Vital Signs: Temp Pulse Resp BP Pulse Ox 98.0 F 86 16 130/48 H 98 09/03/19 08:03 09/03/19 11:25 09/03/19 11:25 09/03/19 08:03 09/03/19 08:03 Intake & Output 09/02/19 09/03/19 09/04/19 06:59 06:59 06:59 Intake Total 3520 4174 Output Total 10 10 Balance 3510 4164 Weight 108 kg 111.8 kg General appearance: PRESENT: no acute distress, cooperative Neck exam: ABSENT: JVD Respiratory exam: PRESENT: clear to auscultation ciera Cardiovascular exam: PRESENT: RRR, +S1, +S2 GI/Abdominal exam: PRESENT: normal bowel sounds, soft, tenderness - Mildly tender at site of percutaneous drain. ABSENT: rebound, rigid Neurological exam: PRESENT: alert, awake Results Laboratory Results: 09/03/19 05:19 09/03/19 05:19 09/03/19 09/03/19 05:19 05:19 WBC 9.5 RBC 3.33 L Hgb 9.9 L Hct 29.8 L MCV 90 MCH 29.9 MCHC 33.4 RDW 14.1 H Plt Count 312 Sodium 144.1 Potassium 4.1 Chloride 111 H Carbon Dioxide 25 Anion Gap 8 BUN 13 Creatinine 1.21 Est GFR ( Amer) 57 L Glucose 76 Calcium 8.6 09/01/19 11:48 Pelvic Fluid Gram Stain - Final Impressions: Abdomen/Pelvis CT 08/31/19 13:55 IMPRESSION: Sigmoid diverticulosis with mild fat stranding adjacent to the anterior proximal to mid sigmoid colon. There is a fluid collection in the soft tissues anterior to the sigmoid colon and superior to the bladder dome which measures approximately 5.3 x 4.6 x 5.5 cm, and closely abuts the anterior bladder dome, with a thin appearing fistulous connection to the mid sigmoid colon (series 3, image 75, series 602, image 65). Findings are concerning for sequelae of diverticular abscess with fistula involving the bladder. Correlate for referable clinical symptoms of enterovesicular fistula. Infection or other complication of urachal remnant is a differential consideration given this appearance and location. Guidance Needle Placement CT 09/01/19 00:00 IMPRESSION: Please see combined report for performance of procedure and radiologic supervision and interpretation. Percutaneous Drainage 09/01/19 08:00 IMPRESSION: Successful CT-guided placement of drainage catheter for abscess in the left lower quadrant as described. Samples were obtained and sent to pathology for evaluation. Assessment and Plan - Diagnosis (1) Colonic diverticular abscess Is this a current diagnosis for this admission?: Yes Plan: IR placement of drain on 09/01/2019 which abscess culture growing polymicrobial organisms Continue ciprofloxacin and Flagyl Surgery following Escalated diet to full liquids today Pain control with Dilaudid every 3 hours as needed (2) Hypertension Is this a current diagnosis for this admission?: Yes Plan: On Lopressor and Lasix home medication (3) Prediabetes Is this a current diagnosis for this admission?: Yes Plan: A1c showing 6.4 Diabetic diet Lifestyle modifications encouraged (4) Asthma Qualifiers: Asthma severity: mild Asthma persistence: intermittent Asthma complication type: uncomplicated Qualified Code(s): J45.20 - Mild intermittent asthma, uncomplicated Is this a current diagnosis for this admission?: Yes Plan: Nebs as needed (5) Oral thrush Is this a current diagnosis for this admission?: Yes Plan: Patient states that it occurs whenever she is on antibiotics. PO fluconazole x 7 days. - Time Time Spent with patient: 15-24 minutes
[2019-09-03] MEDS ORDERED: HYDROMORPHONE HCL 2 MG TABLET PO PRN (18:40)
[2019-09-04] MEDS: METRONIDAZOLE 500 MG/NS RTU 500 MG/100 ML RTUPB IV SCH ×5 (01:04→23:05)
[2019-09-04 06:32] LABS: ABSOLUTE BASOPHILS # (AUTO) 0.1 10^3/uL (0.0-0.2); ABSOLUTE EOSINOPHILS # (AUTO) 0.2 10^3/uL (0.0-0.6); ABSOLUTE LYMPHOCYTES (AUTO) 3.1 10^3/uL (0.5-4.7); ABSOLUTE MONOCYTES (AUTO) 0.8 10^3/uL (0.1-1.4); ABSOLUTE NEUT (AUTO) 4.2 10^3/uL (1.7-8.2); BASOPHILS % (AUTO) 0.8 % (0-2); EOSINOPHILS % (AUTO) 2.3 % (0-6); HEMATOCRIT 31.2 % (36.0-47.0); HEMOGLOBIN 10.5 g/dL (12.0-15.5); LYMPHOCYTES % (AUTO) 37.5 % (13-45); MEAN CORPUSCULAR HEMOGLOBIN 29.6 pg (27.0-33.4); MEAN CORPUSCULAR HGB CONC 33.5 g/dL (32.0-36.0); MEAN CORPUSCULAR VOLUME 88 fl (80-97); MONOCYTES % (AUTO) 9.2 % (3-13); PLATELET COUNT 317 10^3/uL (150-450); RED BLOOD COUNT 3.53 10^6/uL (3.72-5.28); SEGMENTED NEUTROPHILS % (AUTO) 50.2 % (42-78); TOTAL CELLS COUNTED % (AUTO) 100 %; WHITE BLOOD COUNT 8.4 10^3/uL (4.0-10.5)
[2019-09-04 06:56] LABS: ANION GAP 11 (5-19); BLOOD UREA NITROGEN 13 mg/dL (7-20); CALCIUM 8.8 mg/dL (8.4-10.2); CARBON DIOXIDE 25 mmol/L (22-30); CHLORIDE 106 mmol/L (98-107); GLUCOSE 81 mg/dL (75-110); POTASSIUM 3.7 mmol/L (3.6-5.0)
--- NOTE | 2019-09-04 09:40 | PDOC PROGRESS REPORT ---
Subjective Progress Note for:: 09/04/19 Subjective:: feels well ameena full liquids having bm,s min op via drain Reason For Visit: POSSIBLE ABDOMINAL FISTULA Physical Exam Vital Signs: Temp Pulse Resp BP Pulse Ox 97.7 F 67 17 124/69 99 09/04/19 00:00 09/04/19 00:00 09/04/19 00:00 09/04/19 00:00 09/04/19 00:00 Intake & Output 09/03/19 09/04/19 09/05/19 06:59 06:59 06:59 Intake Total 4174 1543 100 Output Total 10 30 Balance 4164 1513 100 Weight 111.8 kg 110 kg General appearance: PRESENT: no acute distress Head exam: PRESENT: normocephalic Eye exam: PRESENT: conjunctiva pink Ear exam: PRESENT: normal external ear exam Mouth exam: PRESENT: moist Neck exam: PRESENT: full ROM Respiratory exam: PRESENT: clear to auscultation ciera Cardiovascular exam: PRESENT: RRR Pulses: PRESENT: normal radial pulses, normal femoral pulses, +2 pedal pulses bilateral Vascular exam: PRESENT: normal capillary refill GI/Abdominal exam: PRESENT: soft Extremities exam: PRESENT: full ROM Musculoskeletal exam: PRESENT: full ROM Neurological exam: PRESENT: alert, awake, oriented to person, oriented to place, oriented to time, oriented to situation Psychiatric exam: PRESENT: appropriate affect Skin exam: PRESENT: dry Results Laboratory Results: 09/04/19 05:15 09/04/19 05:15 09/04/19 09/04/19 05:15 05:15 WBC 8.4 RBC 3.53 L Hgb 10.5 L Hct 31.2 L MCV 88 MCH 29.6 MCHC 33.5 RDW 14.0 Plt Count 317 Seg Neutrophils % 50.2 Sodium 141.7 Potassium 3.7 Chloride 106 Carbon Dioxide 25 Anion Gap 11 BUN 13 Creatinine 1.33 H Est GFR ( Amer) 51 L Glucose 81 Calcium 8.8 09/01/19 11:48 Pelvic Fluid Gram Stain - Final Impressions: Abdomen/Pelvis CT 08/31/19 13:55 IMPRESSION: Sigmoid diverticulosis with mild fat stranding adjacent to the anterior proximal to mid sigmoid colon. There is a fluid collection in the soft tissues anterior to the sigmoid colon and superior to the bladder dome which measures approximately 5.3 x 4.6 x 5.5 cm, and closely abuts the anterior bladder dome, with a thin appearing fistulous connection to the mid sigmoid colon (series 3, image 75, series 602, image 65). Findings are concerning for sequelae of diverticular abscess with fistula involving the bladder. Correlate for referable clinical symptoms of enterovesicular fistula. Infection or other complication of urachal remnant is a differential consideration given this appearance and location. Guidance Needle Placement CT 09/01/19 00:00 IMPRESSION: Please see combined report for performance of procedure and radiologic supervision and interpretation. Percutaneous Drainage 09/01/19 08:00 IMPRESSION: Successful CT-guided placement of drainage catheter for abscess in the left lower quadrant as described. Samples were obtained and sent to pathology for evaluation. Assessment & Plan - Time Time Spent with patient: 35 or more minutes - Plan Summary Plan Summary: s/p perc drain from pelvic abscess due to diverticulitis poss colovesicle fistula now doing well ameena diet afeb vss nl wbc will repeat ct today if resolving, could be discharged with surgery f/u
[2019-09-04] MEDS: ESCITALOPRAM OXALATE 10 MG TABLET PO SCH (10:00)
[2019-09-04] MEDS: METOPROLOL TARTRATE 50 MG TABLET PO SCH ×2 (10:00→21:51)
[2019-09-04] MEDS: POTASSIUM CHLORIDE 10 MEQ TABLET.ER PO SCH (10:00)
[2019-09-04] MEDS: PANTOPRAZOLE SODIUM 40 MG VIAL IV SCH ×2 (10:00→21:51)
[2019-09-04] MEDS: FLUCONAZOLE 100 MG TABLET PO SCH (10:01)
[2019-09-04] MEDS: CIPROFLOXACIN 400 MG/D5W RTU 400 MG/200 ML RTUPB IV SCH ×2 (10:01→21:51)
[2019-09-04] MEDS ORDERED: ACETAMINOPHEN 325 MG TABLET PO PRN (10:29)
--- NOTE | 2019-09-04 10:35 | PDOC PROGRESS REPORT ---
Subjective Progress Note for:: 09/04/19 Subjective:: Patient is doing well. Tolerated full liquids. Abdominal pain is only mild. Reason For Visit: POSSIBLE ABDOMINAL FISTULA Physical Exam Vital Signs: Temp Pulse Resp BP Pulse Ox 98.3 F 65 16 128/54 H 98 09/04/19 09:12 09/04/19 09:12 09/04/19 09:12 09/04/19 09:12 09/04/19 09:12 Intake & Output 09/03/19 09/04/19 09/05/19 06:59 06:59 06:59 Intake Total 4174 1543 100 Output Total 10 30 Balance 4164 1513 100 Weight 111.8 kg 110 kg General appearance: PRESENT: no acute distress, cooperative Neck exam: ABSENT: JVD Respiratory exam: PRESENT: clear to auscultation ciera, unlabored. ABSENT: tachypnea, wheezes Cardiovascular exam: PRESENT: +S1, +S2 GI/Abdominal exam: PRESENT: normal bowel sounds, soft, tenderness. ABSENT: rebound, rigid Neurological exam: PRESENT: alert, awake Results Laboratory Results: 09/04/19 05:15 09/04/19 05:15 09/04/19 09/04/19 05:15 05:15 WBC 8.4 RBC 3.53 L Hgb 10.5 L Hct 31.2 L MCV 88 MCH 29.6 MCHC 33.5 RDW 14.0 Plt Count 317 Seg Neutrophils % 50.2 Sodium 141.7 Potassium 3.7 Chloride 106 Carbon Dioxide 25 Anion Gap 11 BUN 13 Creatinine 1.33 H Est GFR ( Amer) 51 L Glucose 81 Calcium 8.8 09/01/19 11:48 Pelvic Fluid Gram Stain - Final Impressions: Guidance Needle Placement CT 09/01/19 00:00 IMPRESSION: Please see combined report for performance of procedure and radiologic supervision and interpretation. Percutaneous Drainage 09/01/19 08:00 IMPRESSION: Successful CT-guided placement of drainage catheter for abscess in the left lower quadrant as described. Samples were obtained and sent to pathology for evaluation. Assessment and Plan - Diagnosis (1) Colonic diverticular abscess Is this a current diagnosis for this admission?: Yes Plan: IR placement of drain on 09/01/2019 which abscess culture growing polymicrobial organisms Continue ciprofloxacin and Flagyl day 4 Surgery following and planning for repeat CT scan today after which percutaneous drain will be taken out if abscess is resolving Escalated diet to regular today Pain control with Tylenol and Dilaudid for breakthrough (2) Hypertension Is this a current diagnosis for this admission?: Yes Plan: On Lopressor and Lasix home medication Held Lasix today because of mild creatinine bump - will resume tomorrow at a lower dose (3) Prediabetes Is this a current diagnosis for this admission?: Yes Plan: A1c showing 6.4 Diabetic diet Lifestyle modifications encouraged (4) Asthma Qualifiers: Asthma severity: mild Asthma persistence: intermittent Asthma complication type: uncomplicated Qualified Code(s): J45.20 - Mild intermittent asthma, uncomplicated Is this a current diagnosis for this admission?: Yes Plan: Nebs as needed (5) Oral thrush Is this a current diagnosis for this admission?: Yes Plan: Patient states that it occurs whenever she is on antibiotics. PO fluconazole x 7 days. - Time Time Spent with patient: Less than 15 minutes
[2019-09-04] MEDS: HYDROXYCHLOROQUINE SULFATE 200 MG TABLET PO SCH (10:44)
--- NOTE | 2019-09-04 13:09 | RADIOLOGY REPORT (SQ) ---
EXAM DESCRIPTION: CT ABD/PELVIS NO ORAL OR IV COMPLETED DATE/TIME: 09/04/2019 10:15 am REASON FOR STUDY: f/u pelvic abscess from diverticulitis COMPARISON: CT of the abdomen and pelvis with contrast from 08/31/2019. TECHNIQUE: CT scan of the abdomen and pelvis performed without intravenous or oral contrast. Images reviewed with lung, soft tissue, and bone windows. Reconstructed coronal and sagittal MPR images revi ewed. All images stored on PACS. All CT scanners at this facility use dose modulation, iterative reconstruction, and/or weight based d osing when appropriate to reduce radiation dose to as low as reasonably achievable (ALARA). [facility]: Dose Right [facility]: CareDose [facility]: Dose Right [facility]: Teradose 4D [facility]: [employer] RADIATION DOSE: CT Rad equipment meets quality standard of care and radiation dose reduction techniq ues were employed. CTDIvol: 25.4 mGy. DLP: 1302 mGy-cm.mGy. LIMITATIONS: None. FINDINGS: LOWER CHEST: No acute findings. NON-CONTRASTED LIVER, SPLEEN, ADRENALS: Evaluation is limited due to the absence of intravenous contr ast. The relative hypoattenuation of hepatic parenchyma is suggestive of hepatic steatosis. The spl een is normal in size. There is no adrenal mass. PANCREAS: No acute gross abnormality. GALLBLADDER: The gallbladder is surgically absent RIGHT KIDNEY AND URETER: Evaluation is limited due to the absence of intravenous contrast. There is no hydronephrosis, nephrolithiasis, hydroureter or ureterolithiasis. LEFT KIDNEY AND URETER: Evaluation is limited due to the absence of intravenous contrast. There is n o hydronephrosis, nephrolithiasis, hydroureter or ureterolithiasis. AORTA AND RETROPERITONEUM: No aneurysm of the abdominal aorta. No retroperitoneal adenopathy, hemorr juan or mass BOWEL AND PERITONEAL CAVITY: The fluid collection anterior to the sigmoid colon and superior to the d ome of the urinary bladder has decreased in size post percutaneous drainage. The wall of the adjacen t segment of sigmoid colon remains circumferentially thickened and the stranding of the mesocolic fat and thickening of the peritoneal reflections in the left lower quadrant is unchanged. There is no b owel obstruction or free intraperitoneal fluid APPENDIX: Normal. PELVIS, BLADDER, AND ABDOMINAL WALL:The wall of the dome of the urinary bladder remains thickened. T here is no abnormality of the uterus or adnexa that is apparent on CT. BONES: No findings. OTHER: No other finding. IMPRESSION: The peridiverticular abscess anterior to the sigmoid colon and superior to the dome of t he urinary bladder has decreased in size post percutaneous drainage ; at the moment there is no disce rnible fluid component in the collection. The surrounding inflammation persists and there is no air within the lumen of the urinary bladder. COMMENT: Quality ID # [id number]: Final reports with documentation of one or more dose reduction techniques (e.g., Automated exposure control, adjustment of the mA and/or kV according to patient size, use of iterative reconstruction technique) TECHNICAL DOCUMENTATION: JOB ID: [id number] [employer]- All Rights Reserved Reading location - IP/workstation name: [email or web address]
[2019-09-05] MEDS: METRONIDAZOLE 500 MG/NS RTU 500 MG/100 ML RTUPB IV SCH ×2 (06:19→12:33)
[2019-09-05 09:14] LABS: ANION GAP 8 (5-19); BLOOD UREA NITROGEN 13 mg/dL (7-20); CALCIUM 8.7 mg/dL (8.4-10.2); CARBON DIOXIDE 25 mmol/L (22-30); CHLORIDE 109 mmol/L (98-107); GLUCOSE 91 mg/dL (75-110); POTASSIUM 3.6 mmol/L (3.6-5.0)
[2019-09-05] MEDS: PANTOPRAZOLE SODIUM 40 MG VIAL IV SCH (09:33)
[2019-09-05] MEDS: CIPROFLOXACIN 400 MG/D5W RTU 400 MG/200 ML RTUPB IV SCH (09:33)
[2019-09-05] MEDS: METOPROLOL TARTRATE 50 MG TABLET PO SCH (09:33)
[2019-09-05] MEDS: FLUCONAZOLE 100 MG TABLET PO SCH (09:34)
[2019-09-05] MEDS: HYDROXYCHLOROQUINE SULFATE 200 MG TABLET PO SCH (09:34)
[2019-09-05] MEDS: POTASSIUM CHLORIDE 10 MEQ TABLET.ER PO SCH (09:34)
[2019-09-05] MEDS: ESCITALOPRAM OXALATE 10 MG TABLET PO SCH (09:34)
--- NOTE | 2019-09-05 09:51 | PDOC DISCHARGE SUMMARY ---
Impression - Admit/DC Date/PCP Admission Date/Primary Care Provider: 08/31/19 16:11 BENY OSPINA MD Discharge Date: 09/05/19 - Discharge Diagnosis (1) Colonic diverticular abscess Is this a current diagnosis for this admission?: Yes (2) Hypertension Is this a current diagnosis for this admission?: Yes (3) Prediabetes Is this a current diagnosis for this admission?: Yes (4) Asthma Is this a current diagnosis for this admission?: Yes (5) Oral thrush Is this a current diagnosis for this admission?: Yes - Assessment Summary: From presentation outpatient, CBC showed leukocytosis. Patient was hemodynamically stable. Patient was taken for CT scan of the abdomen and pelvis which showed presence of colonic diverticular abscess with concern for fistula formation possibly involving the bladder. Surgery was consulted and deemed that was likely just colonic abscess and the patient did not require any kind of surgical intervention. They recommended percutaneous drain placement which was done by the radiologist. Patient was of course started on IV antibiotics with ciprofloxacin and Flagyl. Patient symptoms continue to improve. Abscess fluid collected from the drain grew polymicrobial organisms all covered by the current regimen of antibiotics. Patient was also noted to have oral thrush which was treated with fluconazole. Patient's percutaneous abdominal drain output has decreased to a bare minimum at this time. Repeat CT scan was done yesterday which showed significant improvement in the abscess with only minimal fluid collection left at this time. Image has been reviewed by the surgeon who has recommended that patient is cleared for discharge and removed the percutaneous drain before discharge. Patient is discharged with ciprofloxacin and Flagyl for 4 more days to complete a 10-day course of treatment, 4 more days of fluconazole to complete a 7-day course of treatment for oral thrush. Of note patient did have some hyperglycemia during her hospitalization and A1c reviewed to be 6.4 indicating prediabetes. Patient has been counseled on lifestyle modification. In addition I will reduce Lasix dose which patient just takes for hypertension and leg swelling, and not for any heart conditions, from 40 to 20 mg daily given creatinine bump. Patient is scheduled to follow-up in the [facility] for further management of her colonic diverticular abscess. - Additional Information Resuscitation Status: Full Code Discharge Diet: As Tolerated Discharge Activity: Activity As Tolerated Referrals: [facility] [Provider Group] - 09/14/19 3:15 pm Prescriptions: Ciprofloxacin HCl [Cipro 500 mg Tablet] 500 mg PO BID #8 tablet Fluconazole [Diflucan 100 mg Tablet] 100 mg PO DAILY #4 tablet Metronidazole [Flagyl 500 mg Tablet] 500 mg PO TID #12 tablet Furosemide [Lasix 20 mg Tablet] 20 mg PO QAM #30 tablet Home Medications: Metoprolol Tartrate [Lopressor 50 mg Tablet] 50 mg PO Q12 03/24/14 Albuterol Sulfate [Albuterol Sulfate Hfa] 2 puff IH PRN PRN 08/31/19 Escitalopram Oxalate [Lexapro 10 mg Tablet] 10 mg PO DAILY 08/31/19 Hydroxychloroquine Sulfate [Plaquenil 200 mg Tablet] 200 mg PO DAILY 08/31/19 Potassium Chloride [Klor-Con M20] 20 meq PO DAILY 08/31/19 Acetaminophen [Tylenol 325 mg Tablet] 975 mg PO Q4HP PRN tablet 09/05/19 Ciprofloxacin HCl [Cipro 500 mg Tablet] 500 mg PO BID #8 tablet 09/05/19 Fluconazole [Diflucan 100 mg Tablet] 100 mg PO DAILY #4 tablet 09/05/19 Furosemide [Lasix 20 mg Tablet] 20 mg PO QAM #30 tablet 09/05/19 Metronidazole [Flagyl 500 mg Tablet] 500 mg PO TID #12 tablet 09/05/19 History of Present Illiness History of Present Illness: REBECCA GOFF is a 49 year old female who is been treated outpatient for a possible UTI. Patient is in today with continued abdominal pain was found to have a possible abdominal fistula into her bladder. Patient states his pain is on the left side. She states no treatment Other than antibiotics all activities been an aggravating factor. Physical Exam Vital Signs: Temp Pulse Resp BP Pulse Ox 98.1 F 58 L 18 129/81 H 98 09/05/19 00:27 09/05/19 00:27 09/05/19 00:27 09/05/19 00:27 09/05/19 00:27 Intake & Output 09/04/19 09/05/19 09/06/19 06:59 06:59 06:59 Intake Total 1543 1440 100 Output Total 30 1 1 Balance 1513 1439 99 Weight 110 kg 111.2 kg General appearance: PRESENT: no acute distress, cooperative Respiratory exam: PRESENT: clear to auscultation ciera, symmetrical, unlabored. ABSENT: tachypnea, wheezes Cardiovascular exam: PRESENT: RRR, +S1, +S2. ABSENT: tachycardia GI/Abdominal exam: PRESENT: normal bowel sounds, soft. ABSENT: distended, firm, guarding, rebound, rigid, tenderness Neurological exam: PRESENT: alert, awake, oriented to person, oriented to place, oriented to time Results Laboratory Results: WBC 8.4 10^3/uL (4.0-10.5) 09/04/19 05:15 RBC 3.53 10^6/uL (3.72-5.28) L 09/04/19 05:15 Hgb 10.5 g/dL (12.0-15.5) L 09/04/19 05:15 Hct 31.2 % (36.0-47.0) L 09/04/19 05:15 MCV 88 fl (80-97) 09/04/19 05:15 MCH 29.6 pg (27.0-33.4) 09/04/19 05:15 MCHC 33.5 g/dL (32.0-36.0) 09/04/19 05:15 RDW 14.0 % (11.5-14.0) 09/04/19 05:15 Plt Count 317 10^3/uL (150-450) 09/04/19 05:15 Lymph % (Auto) 37.5 % (13-45) 09/04/19 05:15 Jenkins % (Auto) 9.2 % (3-13) 09/04/19 05:15 Eos % (Auto) 2.3 % (0-6) 09/04/19 05:15 Baso % (Auto) 0.8 % (0-2) 09/04/19 05:15 Absolute Neuts (auto) 4.2 10^3/uL (1.7-8.2) 09/04/19 05:15 Absolute Lymphs (auto) 3.1 10^3/uL (0.5-4.7) 09/04/19 05:15 Absolute Monos (auto) 0.8 10^3/uL (0.1-1.4) 09/04/19 05:15 Absolute Eos (auto) 0.2 10^3/uL (0.0-0.6) 09/04/19 05:15 Absolute Basos (auto) 0.1 10^3/uL (0.0-0.2) 09/04/19 05:15 Seg Neutrophils % 50.2 % (42-78) 09/04/19 05:15 PT 14.1 SEC (11.4-15.4) 08/31/19 21:07 INR 1.09 08/31/19 21:07 APTT 32.6 SEC (23.5-35.8) 08/31/19 21:07 Sodium 142.3 mmol/L (137-145) 09/05/19 08:07 Potassium 3.6 mmol/L (3.6-5.0) 09/05/19 08:07 Chloride 109 mmol/L (98-107) H 09/05/19 08:07 Carbon Dioxide 25 mmol/L (22-30) 09/05/19 08:07 Anion Gap 8 (5-19) 09/05/19 08:07 BUN 13 mg/dL (7-20) 09/05/19 08:07 Creatinine 1.15 mg/dL (0.52-1.25) 09/05/19 08:07 Est GFR ( Amer) > 60 (>60) 09/05/19 08:07 Est GFR (Non-Af Amer) Cancelled 08/31/19 10:47 Est GFR (MDRD) Non-Af 50 (>60) L 09/05/19 08:07 Glucose 91 mg/dL (75-110) 09/05/19 08:07 POC Glucose 153 mg/dL (70-110) H 09/01/19 06:22 Hemoglobin A1c % 6.4 % (4.7-6.0) H 09/01/19 05:06 Calcium 8.7 mg/dL (8.4-10.2) 09/05/19 08:07 Phosphorus 3.3 mg/dL (2.5-4.5) 09/01/19 05:06 Magnesium 1.8 mg/dL (1.6-2.3) 09/01/19 05:06 Total Bilirubin 0.6 mg/dL (0.2-1.3) 08/31/19 13:01 Direct Bilirubin 0.2 mg/dL (0.0-0.4) 08/31/19 13:01 Neonat Total Bilirubin Not Reportable 08/31/19 13:01 Neonat Direct Bilirubin Not Reportable 08/31/19 13:01 Neonat Indirect Bili Not Reportable 08/31/19 13:01 AST 22 U/L (14-36) 08/31/19 13:01 ALT 21 U/L (<35) 08/31/19 13:01 Alkaline Phosphatase 93 U/L (38-126) 08/31/19 13:01 Total Protein 7.3 g/dL (6.3-8.2) 08/31/19 13:01 Albumin 3.8 g/dL (3.5-5.0) 08/31/19 13:01 EGFR Cancelled 08/31/19 10:47 Serum HCG, Qual NEGATIVE (NEGATIVE) 08/31/19 13:01 Urine Color YELLOW 08/31/19 08:50 Urine Appearance SLIGHTLY-CLOUDY 08/31/19 08:50 Urine pH 6.0 (5.0-9.0) 08/31/19 08:50 Ur Specific [place] 1.013 08/31/19 08:50 Urine Protein NEGATIVE mg/dL (NEGATIVE) 08/31/19 08:50 Urine Glucose (UA) NEGATIVE mg/dL (NEGATIVE) 08/31/19 08:50 Urine Ketones NEGATIVE mg/dL (NEGATIVE) 08/31/19 08:50 Urine Blood NEGATIVE (NEGATIVE) 08/31/19 08:50 Urine Nitrite (Reflex) NEGATIVE (NEGATIVE) 08/31/19 08:50 Urine Bilirubin NEGATIVE (NEGATIVE) 08/31/19 08:50 Urine Urobilinogen NEGATIVE mg/dL (<2.0) 08/31/19 08:50 Leukocyte Esterase Rfl NEGATIVE (NEGATIVE) 08/31/19 08:50 Urine RBC (Auto) 1 /HPF 08/31/19 08:50 Urine WBC (Reflex) 9 /HPF 08/31/19 08:50 Squamous Epi Cells Auto 2 /HPF 08/31/19 08:50 Urine Mucus (Auto) RARE /LPF 08/31/19 08:50 Urine Ascorbic Acid NEGATIVE (NEGATIVE) 08/31/19 08:50 Impressions: Abdomen/Pelvis CT 08/31/19 13:55 IMPRESSION: Sigmoid diverticulosis with mild fat stranding adjacent to the anterior proximal to mid sigmoid colon. There is a fluid collection in the soft tissues anterior to the sigmoid colon and superior to the bladder dome which measures approximately 5.3 x 4.6 x 5.5 cm, and closely abuts the anterior bladder dome, with a thin appearing fistulous connection to the mid sigmoid colon (series 3, image 75, series 602, image 65). Findings are concerning for sequelae of diverticular abscess with fistula involving the bladder. Correlate for referable clinical symptoms of enterovesicular fistula. Infection or other complication of urachal remnant is a differential consideration given this appearance and location. Guidance Needle Placement CT 09/01/19 00:00 IMPRESSION: Please see combined report for performance of procedure and r adiologic supervision and interpretation. Percutaneous Drainage 09/01/19 08:00 IMPRESSION: Successful CT-guided placement of drainage catheter for abscess in the left lower quadrant as described. Samples were obtained and sent to pathology for evaluation. Abdomen/Pelvis CT 09/04/19 00:00 IMPRESSION: The peridiverticular abscess anterior to the sigmoid colon and superior to the dome of the urinary bladder has decreased in size post percutaneous drainage ; at the moment there is no discernible fluid component in the collection. The surrounding inflammation persists and there is no air within the lumen of the urinary bladder. Plan Time Spent: Less than 30 Minutes Stroke Is this a Stroke Patient?: No Acute Heart Failure - Is this a Heart Failure Patient?: No
[2019-09-05 11:17] VITALS: BP 124/69
--- NOTE | 2019-09-05 20:12 | PDOC PROGRESS REPORT ---
Subjective Progress Note for:: 09/05/19 Subjective:: 49-year-old female with complicated diverticulitis. The patient has a pelvic abscess, associated with her diverticulitis. She is status post percutaneous drainage. Today, there is minimal serosanguineous fluid in the drain. The patient reports that she is feeling much better. She denies abdominal pain, fevers, chills, nausea, vomiting, chest pain, shortness of breath, headache. Reason For Visit: POSSIBLE ABDOMINAL FISTULA Physical Exam Vital Signs: Temp Pulse Resp BP Pulse Ox 98.1 F 58 L 18 124/69 98 09/05/19 11:17 09/05/19 11:17 09/05/19 11:17 09/05/19 11:17 09/05/19 11:17 Intake & Output 09/04/19 09/05/19 09/06/19 06:59 06:59 06:59 Intake Total 1543 1440 300 Output Total 30 1 1 Balance 1513 1439 299 Weight 110 kg 111.2 kg Exam: General appearance: PRESENT: no acute distress, other - Overweight Head exam: PRESENT: atraumatic, normocephalic Eye exam: PRESENT: EOMI, PERRLA. ABSENT: scleral icterus Mouth exam: PRESENT: moist, neck supple Neck exam: ABSENT: meningismus, tenderness, thyromegaly, tracheal deviation Respiratory exam: PRESENT: clear to auscultation ciera, unlabored. ABSENT: chest wall tenderness, wheezes Cardiovascular exam: PRESENT: RRR Vascular exam: PRESENT: normal capillary refill GI/Abdominal exam: PRESENT: soft. ABSENT: tenderness. Rectal exam: PRESENT: deferred Extremities exam: ABSENT: clubbing Musculoskeletal exam: ABSENT: deformity Neurological exam: PRESENT: alert, awake, oriented to person, oriented to place, oriented to time, oriented to situation, CN II-XII grossly intact. ABSENT: motor sensory deficit Psychiatric exam: PRESENT: agitated, anxious, depressed Skin exam: ABSENT: cyanosis, erythema, jaundice Results Laboratory Results: 09/04/19 05:15 09/05/19 08:07 09/05/19 08:07 Sodium 142.3 Potassium 3.6 Chloride 109 H Carbon Dioxide 25 Anion Gap 8 BUN 13 Creatinine 1.15 Est GFR ( Amer) > 60 Glucose 91 Calcium 8.7 Impressions: Guidance Needle Placement CT 09/01/19 00:00 IMPRESSION: Please see combined report for performance of procedure and radiologic supervision and interpretation. Percutaneous Drainage 09/01/19 08:00 IMPRESSION: Successful CT-guided placement of drainage catheter for abscess in the left lower quadrant as described. Samples were obtained and sent to pathology for evaluation. Abdomen/Pelvis CT 09/04/19 00:00 IMPRESSION: The peridiverticular abscess anterior to the sigmoid colon and superior to the dome of the urinary bladder has decreased in size post percutaneous drainage ; at the moment there is no discernible fluid component in the collection. The surrounding inflammation persists and there is no air within the lumen of the urinary bladder. Assessment & Plan - Diagnosis (1) Colonic diverticular abscess Is this a current diagnosis for this admission?: Yes - Time Time Spent with patient: Less than 15 minutes - Plan Summary Plan Summary: This is a 49-year-old female with complicated diverticulitis. Her diverticular abscess has been drained by interventional radiology. She has minimal drain output. Overall, she feels better. She denies fevers or chills. I will remove her drain at the bedside today. Plan is for discharge on oral antibiotics. I have discussed with her at length the need for follow-up colonoscopy in 6 to 8 weeks. She should also consider elective sigmoid colon resection after she has adequately healed (to decrease the risk of recurrent diverticulitis and the need for a possible Arteaga's procedure). The patient has expressed understanding of this. She should increase her fiber intake, and add a fiber supplement twice daily.
== END 2019-09-05 12:32 | disposition home or self-care (01) | DRG 392 ==
LOC: ER 07:54 → EH 16:11 → 4N 17:51
PROVIDERS: ADMIT Internal Medicine; ATTEND Internal Medicine
PROC: 0W9H30Z Drainage of Retroperitoneum with Drainage Device, Percutaneous Approach (ICD-10-PCS; principal; 2019-09-01)
DX: K57.20 Diverticulitis of large intestine with perforation and abscess without bleeding (principal); N17.9 Acute kidney failure, unspecified; B37.0 Candidal stomatitis; I10 Essential (primary) hypertension; J45.909 Unspecified asthma, uncomplicated; R73.9 Hyperglycemia, unspecified; T36.8X5A Adverse effect of other systemic antibiotics, initial encounter; Y92.230 Patient room in hospital as the place of occurrence of the external cause
CPT/HCPCS: 36415; 74176; 74177; 75989; 77012; 80048; 80053; 81001; 82962; 83036; 83735; 84100; 84703; 85025; 85027; 85610; 85730; 87040; 87070; 87075; 87077; 87186; 87205; 94640; 94799; 99285; C1729; C1769; C1894; C9113; J0692; J0744; J1170; J2250; J2405; J2920; J3010; J3490; J7030; J7512; J7620

== ENCOUNTER 2019-11-03 06:57 | Day surgery (SDC) | payer BC ==
[2019-11-03] MEDS ORDERED: ONDANSETRON HCL INJ/PF 4 MG/2 ML SDV ONE (07:17)
[2019-11-03] MEDS ORDERED: DIPHENHYDRAMINE HCL 50 MG/ML VIAL ONE (07:17)
[2019-11-03] MEDS ORDERED: GLUCAGON,HUMAN RECOMB 1 MG INJ ONE (07:18)
[2019-11-03] MEDS ORDERED: NALOXONE HCL INJ/PF 0.4 MG/1 ML SDV ONE (07:18)
[2019-11-03] MEDS ORDERED: EPINEPHRINE INJ 1 MG/10 ML DISP.SYRIN ONE (07:18)
[2019-11-03] MEDS ORDERED: FLUMAZENIL INJ 0.5 MG/5 ML VIAL ONE (07:18)
[2019-11-03] MEDS: MIDAZOLAM 2 MG/2 ML INJ ONE ×3 (07:40→07:55)
[2019-11-03] MEDS: FENTANYL CITRATE INJ/PF 100 MCG/2 ML AMPUL ONE ×3 (07:42→07:50)
--- NOTE | 2019-11-03 08:29 | Operative Report ---
Nonrecallable Operative Report DATE OF SURGERY: 11/03/19 PREOPERATIVE DIAGNOSIS: hx of diverticulitis POSTOPERATIVE DIAGNOSIS: hx of diverticulitis OPERATION: colonoscopy with biopsy SURGEON: ELIJAH ROMERO ANESTHESIA: Moderate Sedation TISSUE REMOVED OR ALTERED: cecal polyp COMPLICATIONS: none ESTIMATED BLOOD LOSS: 0 INTRAOPERATIVE FINDINGS: see note PROCEDURE: Patient was brought to the endoscopy suite awake alert stable condition placed on the endoscopy table in left lateral decubitus position. After appropriate timeout site verification the procedure commenced. The patient was given IV fentanyl and Versed for sedation. The Olympus colonoscope was passed into the rectum easily traversed the rectum sigmoid colon descending colon splenic flexure transverse colon hepatic flexure and down the ascending colon to the cecum. As the scope was slowly withdrawn we noted a very small cecal polyp less than 2 mm of diameter which was biopsied and removed with cold forceps biopsy. The scope was then slowly withdrawn up the ascending colon hepatic flexure transverse colon and splenic flexure noting the normal mucosa without evidence of mucosal abnormalities as we traversed down the descending colon through the sigmoid colon we noted a few scattered diverticula. There is no evidence of any stricture or any other mucosal mass. Scope was then slowly withdrawn. Findings #1 small cecal polyp biopsy removed. 2. Few sigmoid diverticula. Patient tolerated procedure well and was returned recovery in stable condition Follow-up colonoscopy in 5 years.
--- NOTE | 2019-11-03 08:31 | Discharge Summary ---
Discharge Summary (SDC) - Discharge Final Diagnosis: Sigmoid diverticulosis cecal polyp Date of Surgery: 11/03/19 Discharge Date: 11/03/19 Condition: Good Referrals: BENY OSPINA MD [Primary Care Provider] - Discharge Diet: As Tolerated Discharge Activity: Activity As Tolerated Report the Following to Your Physician Immediately: Vomiting, Unusual Bleeding - Patient needs a follow-up with me 2 to 3 weeks
[2019-11-03 09:11] VITALS: BP 139/81
== END 2019-11-03 09:20 | disposition home or self-care (01) ==
LOC: END 06:57
PROVIDERS: ATTEND Surgery
DX: K57.30 Diverticulosis of large intestine without perforation or abscess without bleeding (principal); D12.0 Benign neoplasm of cecum; I10 Essential (primary) hypertension; M06.9 Rheumatoid arthritis, unspecified; K61.0 Anal abscess; J45.909 Unspecified asthma, uncomplicated; Z79.51 Long term (current) use of inhaled steroids; Z79.899 Other long term (current) drug therapy
CPT/HCPCS: 45380; 88305 ×2; J2250; J3010; J0171; J1200; J1610; J2310; J2405; J3490

== ENCOUNTER → 2020-03-17 | Outpatient (CLI) | payer BC ==
--- NOTE | 2020-03-17 16:12 | RADIOLOGY REPORT (SQ) ---
EXAM DESCRIPTION: CT ABD/PELVIS WITH IV ORAL IMAGES COMPLETED DATE/TIME: 03/17/2020 1:51 pm REASON FOR STUDY: K57.92 DVTRCLI OF INTEST, PART UNSP, W/O PERF OR ABSCESS W/O BLEED K57.92 DVTRCLI OF INTEST, PART UNSP, W/O PERF OR ABSCESS W/O COMPARISON: 09/04/2019 TECHNIQUE: CT scan of the abdomen and pelvis performed using helical scanning technique with dynamic intravenous contrast injection. Oral contrast. Images reviewed with lung, soft tissue, and bone wind ows. Reconstructed coronal and sagittal MPR images reviewed. Delayed images for evaluation of the uri nary system also acquired. All images stored on PACS. All CT scanners at this facility use dose modulation, iterative reconstruction, and/or weight based d osing when appropriate to reduce radiation dose to as low as reasonably achievable (ALARA). [facility]: Dose Right [facility]: CareDose [facility]: Dose Right [facility]: Teradose 4D [facility]: [employer] CONTRAST TYPE AND DOSE: contrast/concentration: Isovue 350.00 mmol/ml; Total Contrast Delivered: 100 .0 ml; Total Saline Delivered: 72.0 ml RENAL FUNCTION: Creatinine 1 RADIATION DOSE: CT Rad equipment meets quality standard of care and radiation dose reduction techniq ues were employed. CTDIvol: 29.4 - 29.4 mGy. DLP: 3158 mGy-cm.. LIMITATIONS: None. FINDINGS: LOWER CHEST: No significant findings. No nodules or infiltrates. LIVER: Normal size. No masses. No dilated ducts. SPLEEN: Normal size. No focal lesions. PANCREAS: No masses. No significant calcifications. No adjacent inflammation or peripancreatic fluid collections. Pancreatic duct not dilated. GALLBLADDER: Surgically absent. ADRENAL GLANDS: No significant masses or asymmetry. RIGHT KIDNEY AND URETER: No solid masses. No significant calcifications. No hydronephrosis or hyd roureter. LEFT KIDNEY AND URETER: No solid masses. No significant calcifications. No hydronephrosis or hydr oureter. AORTA AND VESSELS: No aneurysm. No dissection. Renal arteries, SMA, celiac without stenosis. RETROPERITONEUM: No retroperitoneal adenopathy, hemorrhage or masses. BOWEL AND PERITONEAL CAVITY: There is mild sigmoid diverticulosis with no associated inflammation. APPENDIX: Normal. PELVIS: No mass. No free fluid. Normal bladder. ABDOMINAL WALL: No masses. No hernias. BONES: No significant or acute findings. OTHER: No other significant finding. IMPRESSION: Mild diverticulosis coli with no acute inflammatory changes. TECHNICAL DOCUMENTATION: JOB ID: [id number] Quality ID # [id number]: Final reports with documentation of one or more dose reduction techniques (e.g., Au tomated exposure control, adjustment of the mA and/or kV according to patient size, use of iterative reconstruction technique) 2010 [employer]- All Rights Reserved Reading location - IP/workstation name: [email or web address]
== END ==
LOC: RAD 13:21
PROVIDERS: ATTEND Surgery
DX: K57.92 Diverticulitis of intestine, part unspecified, without perforation or abscess without bleeding (principal)
CPT/HCPCS: 74177; 82565

== ENCOUNTER 2020-07-30 18:55 | Emergency (ER) | payer BC ==
--- NOTE | 2020-07-30 19:28 | ER Document Report ---
ED Medical Screen (RME) - General Chief Complaint: Abscess Stated Complaint: SKIN SORE Time Seen by Provider: 07/30/20 19:21 Primary Care Provider: ELIJAH ROMERO MD [Primary Care Provider] - Follow up as needed Mode of Arrival: Ambulatory Information source: Patient Notes: 50-year-old female presented to ED for complaint of a perianal abscess. She states she had a similar abscess in [address] Sylvester took her to surgery for it. She states this was started getting bad yesterday. She states she also has a history of diverticulitis in August 2019 and it was pretty bad episode. She states she is also had a gallbladder of tonsils and adenoids and a C- section. She states she does smoke a pack a day and drinks about every week and does use marijuana. Patient is alert oriented respirations regular nonlabored speaking in full sentences walks with even steady gait. I have greeted and performed a rapid initial assessment of this patient. A comprehensive ED assessment and evaluation of the patient, analysis of test results and completion of medical decision making process will be conducted by an additional ED providers. TRAVEL OUTSIDE OF THE [place] IN LAST 30 DAYS: No - Related Data Allergies/Adverse Reactions: erythromycin base [Erythromycin Base] Allergy (Severe, Verified 07/30/20 19:10) Chest pain Home Medications: pro-air. potassium. plaquinil. lasix. xanax. metoprolol. lexapro Past Medical History - Social History Chew tobacco use (# tins/day): No Frequency of alcohol use: Social Drug Abuse: None - Past Medical History Cardiac Medical History: Reports: Hx Hypertension - on meds Denies: Hx Coronary Artery Disease, Hx Heart Attack Pulmonary Medical History: Reports: Hx Asthma - inhalers Denies: Hx Bronchitis, Hx COPD, Hx Pneumonia Neurological Medical History: Denies: Hx Cerebrovascular Accident, Hx Seizures Renal/ Medical History: Denies: Hx Peritoneal Dialysis Musculoskeltal Medical History: Reports Hx Arthritis - rheumatoid Psychiatric Medical History: Reports: Hx Depression Past Surgical History: Reports: Hx Section, Hx Cholecystectomy, Hx Tonsillectomy, Other - Perianal abscess - Immunizations Hx Diphtheria, Pertussis, Tetanus Vaccination: No Physical Exam - Vital signs Vitals: Temp Pulse Resp BP Pulse Ox 98.1 F 81 16 142/80 H 97 07/30/20 19:06 07/30/20 19:06 07/30/20 19:06 07/30/20 19:06 07/30/20 19:06 Course - Vital Signs Vital signs: Temp Pulse Resp BP Pulse Ox 98.1 F 81 16 142/80 H 97 07/30/20 19:06 07/30/20 19:06 07/30/20 19:06 07/30/20 19:06 07/30/20 19:06 Doctor's Discharge - Discharge Referrals: ELIJAH ROMERO MD [Primary Care Provider] - Follow up as needed
[2020-07-30 20:29] LABS: ABSOLUTE BASOPHILS # (AUTO) 0.1 10^3/uL (0.0-0.2); ABSOLUTE EOSINOPHILS # (AUTO) 0.3 10^3/uL (0.0-0.6); ABSOLUTE LYMPHOCYTES (AUTO) 2.5 10^3/uL (0.5-4.7); ABSOLUTE MONOCYTES (AUTO) 0.7 10^3/uL (0.1-1.4); BASOPHILS % (AUTO) 0.7 % (0-2); EOSINOPHILS % (AUTO) 3.1 % (0-6); HEMATOCRIT 38.3 % (36.0-47.0); HEMOGLOBIN 12.9 g/dL (12.0-15.5); LYMPHOCYTES % (AUTO) 29.4 % (13-45); MEAN CORPUSCULAR HEMOGLOBIN 31.1 pg (27.0-33.4); MEAN CORPUSCULAR HGB CONC 33.7 g/dL (32.0-36.0); MEAN CORPUSCULAR VOLUME 92 fl (80-97); MONOCYTES % (AUTO) 7.8 % (3-13); PLATELET COUNT 188 10^3/uL (150-450); RED BLOOD COUNT 4.16 10^6/uL (3.72-5.28); RED CELL DISTRIBUTION WIDTH 16.2 % (11.5-14.0); TOTAL CELLS COUNTED % (AUTO) 100 %; WHITE BLOOD COUNT 8.5 10^3/uL (4.0-10.5)
[2020-07-30 20:44] LABS: APPEARANCE,URINE SLIGHTLY-CLOUDY; BILIRUBIN,URINE NEGATIVE (NEGATIVE); COLOR,URINE YELLOW; GLUCOSE, URINE NEGATIVE (NEGATIVE); KETONES,URINE NEGATIVE (NEGATIVE); LEUKOCYTE ESTERASE,URINE TRACE (NEGATIVE); NITRITE,URINE NEGATIVE (NEGATIVE); PROTEIN,URINE NEGATIVE (NEGATIVE); URINE SPECIFIC GRAVITY 1.016
[2020-07-30 20:58] LABS: ALBUMIN 4.1 g/dL (3.5-5.0); ALKALINE PHOSPHATASE 98 U/L (38-126); ANION GAP 6 (5-19); ASPARTATE AMINO TRANSFERASE 23 U/L (14-36); BILIRUBIN,TOTAL 0.3 mg/dL (0.2-1.3); BLOOD UREA NITROGEN 10 mg/dL (7-20); CALCIUM 10.2 mg/dL (8.4-10.2); CARBON DIOXIDE 29 mmol/L (22-30); CHLORIDE 105 mmol/L (98-107); GLUCOSE 99 mg/dL (75-110); POTASSIUM 4.2 mmol/L (3.6-5.0); TOTAL PROTEIN 7.1 g/dL (6.3-8.2)
[2020-07-30] MEDS ORDERED: LIDOCAINE 1% INJ (10 MG/ML) 10 ML MDV INJ ONE (22:00)
[2020-07-30] MEDS ORDERED: LIDOCAINE 1% INJ-PF (10 MG/ML) 30 ML SDV INJ ONE (22:01)
--- NOTE | 2020-07-30 23:08 | ER Document Report ---
ED Skin Rash/Insect Bite/Abscs - General Chief Complaint: Abscess Stated Complaint: SKIN SORE Time Seen by Provider: 07/30/20 19:21 Primary Care Provider: ELIJAH ROMERO MD [ACTIVE STAFF] - Follow up as needed Mode of Arrival: Ambulatory Information source: Patient Notes: Patient is a 50-year-old female comes the emergency room complaining of having an abscess on her left buttocks area. Patient states she had one many years ago that eventually ended up going to surgery to be drained. Patient states it is in or near the same areas that. This started approximately 24 hours ago according to patient has become very painful. She denies any fever no nausea no vomiting. TRAVEL OUTSIDE OF THE [place] IN LAST 30 DAYS: No - HPI Patient complains to provider of: Tender/swollen area Onset: Yesterday Onset/Duration: Sudden, Persistent, Worse Quality of pain: Throbbing Severity: Moderate Pain Level: 3 Skin Character: Abscess, Tenderness, Thickening Skin Temperature: Warm Quality of rash: Painful Identify cause: No Relieved by: Denies Similar symptoms previously: Yes Recently seen / treated by doctor: No - Related Data Allergies/Adverse Reactions: erythromycin base [Erythromycin Base] Allergy (Severe, Verified 07/30/20 19:10) Chest pain Home Medications: pro-air. potassium. plaquinil. lasix. xanax. metoprolol. lexapro Past Medical History - General Information source: Patient - Social History Smoking Status: Current Every Day Smoker Chew tobacco use (# tins/day): No Smoking Education Provided: Yes Frequency of alcohol use: Social Drug Abuse: None Lives with: Family Family History: Reviewed & Not Pertinent - No history of DVT - Past Medical History Cardiac Medical History: Reports: Hx Hypertension - on meds Denies: Hx Coronary Artery Disease, Hx Heart Attack Pulmonary Medical History: Reports: Hx Asthma - inhalers Denies: Hx Bronchitis, Hx COPD, Hx Pneumonia Neurological Medical History: Denies: Hx Cerebrovascular Accident, Hx Seizures Renal/ Medical History: Denies: Hx Peritoneal Dialysis Musculoskeletal Medical History: Reports Hx Arthritis - rheumatoid Psychiatric Medical History: Reports: Hx Depression Past Surgical History: Reports: Hx Section, Hx Cholecystectomy, Hx Tonsillectomy, Other - Perianal abscess - Immunizations Hx Diphtheria, Pertussis, Tetanus Vaccination: No Review of Systems - Review of Systems Constitutional: No symptoms reported EENT: No symptoms reported Cardiovascular: No symptoms reported Respiratory: No symptoms reported Gastrointestinal: No symptoms reported Genitourinary: No symptoms reported Female Genitourinary: No symptoms reported Musculoskeletal: No symptoms reported Skin: See HPI, Other - Abscess Hematologic/Lymphatic: No symptoms reported Neurological/Psychological: No symptoms reported -: Yes All other systems reviewed and negative Physical Exam - Vital signs Vitals: Temp Pulse Resp BP Pulse Ox 98.1 F 81 16 142/80 H 97 07/30/20 19:06 07/30/20 19:06 07/30/20 19:06 07/30/20 19:06 07/30/20 19:06 Interpretation: Hypertensive - Notes Notes: PHYSICAL EXAMINATION: GENERAL: Well-appearing, well-nourished and in no acute distress. But uncomfortable appearing HEAD: Atraumatic, normocephalic. EYES: Pupils equal round and reactive to light, extraocular movements intact, conjunctiva are normal. LUNGS: Breath sounds clear to auscultation bilaterally and equal. No wheezes rales or rhonchi. HEART: Regular rate and rhythm without murmurs ABDOMEN: Examination patient's area of concern is located in her left perianal area when laying on her left side patient's abscess is approximately 3 o'clock position from the sphincter. It is approximately 3 and half to 4 cm from the rim of the anus. Does not appear to be into the sphincter muscle area. The lesion itself on palpation is approximately 2 cm to 3 cm wide by 2 cm long but it appears to feel deep. There is fluctuance noted at that point. There is a pustular head at the beginning of this lesion. There is tenderness around it. Perirectal exam shows patient has good sphincter tone. Female : deferred PSYCH: Normal mood, normal affect. SKIN: Warm, Dry, normal turgor, no rashes or lesions noted. Course - Re-evaluation Re-evalutation: 07/31/20 00:55 Patient tolerated the procedure without any complications. She felt much relief after we released approximately 25 to 30 mL of the whitish pus. - Vital Signs Vital signs: Temp Pulse Resp BP Pulse Ox 98.5 F 75 16 146/81 H 96 07/30/20 23:30 07/30/20 23:30 07/30/20 23:30 07/30/20 23:30 07/30/20 23:30 - Laboratory Result Diagrams: 07/30/20 20:11 07/30/20 20:11 Laboratory results interpreted by me: 07/30/20 07/30/20 20:11 20:11 RDW 16.2 H Urine Urobilinogen 2.0 H Ur Leukocyte Esterase TRACE H Procedures - Incision and Drainage Left Rectal Type: Single Anesthetic type: 1% Lidocaine mL's of anesthetic: 2 Blade size: 11 I&D procedure: Betadine prep applied, Iodoform packing placed Incision Method: Incision made by scalpel Amount/type of drainage: 25 to 30 mL of a fluid white material unable to detect smell due to mask Notes: 07/31/20 00:57 The actual I&D was not a very deep I&D. I used an 11 blade and just punctured the fluctuant area. As stated it was about 3 and half to 4 cm away from the rectal rim and felt comfortable that it would not be getting into the muscle. With the small puncture that I put in less than a half to three-quarter yamilex timeter depth and approximately three-quarter centimeter wide we drained a large volume. I was able to place in approximately 2 to 3 inches of iodoform. Minimal amount of bleeding was noted. Post procedure I also did a digital rectal exam and patient had good sphincter tone. I have informed patient that this may not be the cure all for this but should give her the relief over the weekend. She has a surgeon that she sees and she would like to see the same one that took care of the problem in the past however I did inform her that should it get worse should she have any difficulties at all she is to return to ER for reevaluation and progress Marcello surgical intervention. Discharge - Discharge Clinical Impression: Perirectal abscess Condition: Stable Disposition: HOME, SELF-CARE Instructions: Abscess ([facility]), Cephalexin ([facility]), Oral Narcotic Medication ([facility]), Post Incision and Drainage Additional Instructions: The abscesses itself I did not do an extensive I&D. I basically did a small puncture to the area to relieve the pressure. We had a large return of a whitish exudate. And then I just placed a small inch of iodoform into the hole to keep it draining. I was unable to express any more drainage from the area after the original amount was out. I did remind you that that piece of string could fill out any time. Do not sit in the bathtub but you can use either a sitz bath to soak in or the shower and use a washcloth as a warm compress 3-4 times a day. Do not put it in a microwave. I am placing you on 2 antibiotics plus a Diflucan pill as we discussed. I believe this will need to be r eevaluated by your surgeon the first of the week. And as we discussed should you have increasing pain discomfort or spike a fever return to ER for reevaluation. Prescriptions: Clindamycin HCl 300 mg PO QID #40 capsule Fluconazole [Diflucan] 150 mg PO ONCE PRN #1 tablet PRN Reason: Cephalexin Monohydrate [Keflex 500 mg Capsule] 500 mg PO Q6H 5 Days #28 capsule Forms: Elevated Blood Pressure, Smoking Cessation Education Referrals: ELIJAH ROMERO MD [ACTIVE STAFF] - Follow up as needed
[2020-07-30] MEDS ORDERED: HYDROCODONE/ACETAMINOPHEN 5-325 MG (6 TAB/ER DISP) PO PRN (23:09)
[2020-07-30 23:31] VITALS: BP 146/81
== END 2020-07-30 23:30 | disposition home or self-care (01) ==
LOC: ER 18:55
PROC: 0D9P0ZZ Drainage of Rectum, Open Approach (ICD-10-PCS; principal; 2020-07-30)
DX: K61.1 Rectal abscess (principal); F17.200 Nicotine dependence, unspecified, uncomplicated; Z79.899 Other long term (current) drug therapy; Z88.1 Allergy status to other antibiotic agents; I10 Essential (primary) hypertension; J45.909 Unspecified asthma, uncomplicated
CPT/HCPCS: 99284; 36415; 87070; 87205; 83690; 85025; 87075; 87077; 80053; 81001; 87186; 46040; J3490